=== PATIENT | male | born 1950 | race Caucasian/White ===

== ENCOUNTER 2016-06-04 09:45 | Outpatient (CLI) | payer MEDICARE, OTHER ==
[2016-06-04] MEDS ORDERED: BARIUM SULFATE 135 ML BOTTLE PO ONE (10:13)
[2016-06-04] MEDS ORDERED: BARIUM SULFATE 355 ML BOTTLE PO ONE (11:00)
[2016-06-04] MEDS ORDERED: BARIUM SULFATE 355 ML BOTTLE PO SCH (11:00)
== END 2016-06-04 09:46 | disposition home or self-care (01) ==
DX: K44.9 Diaphragmatic hernia without obstruction or gangrene (principal); K21.9 Gastro-esophageal reflux disease without esophagitis; K22.8 Other specified diseases of esophagus
CPT/HCPCS: 74220; A9270

== ENCOUNTER 2016-11-14 13:53 | Outpatient (CLI) | payer MEDICARE, OTHER ==
--- NOTE | 2016-11-15 13:07 | Ultrasound Report ---
BILATERAL LOWER EXTREMITY VENOUS DUPLEX: 11/14/2016 CLINICAL INDICATION: Bilateral edema. TECHNIQUE: Real-time sonographic vascular imaging was performed by the measurement and verification engineer through the lower extremities utilizing both color flow and Doppler spectral analysis. Multiple international sales representative static i mages were saved for review. FINDINGS: A bilateral lower extremity venous sonogram is performed revealing the common femoral, supe rficial femoral, profunda femoris, and popliteal veins to be adequately visualized without intralumin al defects. There is normal venous compression, augmentation, phasicity, and spontaneity of venous fl ow. In the calf, the visualized more cephalad portions of posterior tibial and peroneal veins are amarilys ssly compressible, without filling defects. IMPRESSION: NO EVIDENCE OF DEEP VENOUS THROMBOSIS. JOB #: [id number] EXT JOB #:[id number]
== END 2016-11-14 13:54 | disposition home or self-care (01) ==
LOC: DI 13:53
PROVIDERS: ATTEND Internal Medicine
DX: R60.0 Localized edema (principal)
CPT/HCPCS: 93306; 93970

== ENCOUNTER 2017-02-14 11:27 | Outpatient (CLI) | payer MEDICARE, OTHER ==
--- NOTE | 2017-02-14 14:13 | XRAY Report ---
THREE-VIEW LEFT KNEE: 02/14/2017 CLINICAL INDICATION: Pain, restricted range of motion. FINDINGS: AP, lateral, sunrise views of the left knee demonstrate moderate osteoarthritis. A small effusion is present. There is no evidence of fracture or dislocation. IMPRESSION: MODERATE OSTEOARTHRITIS, WITH A SMALL JOINT EFFUSION. JOB #: [id number] EXT JOB #:[id number]
== END 2017-02-14 11:28 | disposition home or self-care (01) ==
LOC: DI.N 11:27
PROVIDERS: ATTEND Internal Medicine
DX: M17.12 Unilateral primary osteoarthritis, left knee (principal); M25.462 Effusion, left knee

== ENCOUNTER 2017-08-05 13:04 | Outpatient (CLI) | payer MEDICARE, OTHER ==
--- NOTE | 2017-08-05 14:31 | XRAY Report ---
THREE VIEW RIGHT KNEE: 08/05/2017 CLINICAL INDICATION: Persistent pain. FINDINGS: AP, lateral, sunrise views of the right knee demonstrate severe right knee osteoarthritis, with complete collapse of the medial femorotibial joint space. There is no evidence of acute fracture or dislocation. No effusion is present. IMPRESSION: SEVERE RIGHT KNEE OSTEOARTHRITIS. TD: 08/05/2017 14:29
== END 2017-08-05 13:05 | disposition home or self-care (01) ==
LOC: DI 13:04
PROVIDERS: ATTEND Internal Medicine
DX: M17.11 Unilateral primary osteoarthritis, right knee (principal)

== ENCOUNTER 2018-12-25 16:40 | Outpatient (CLI) | payer MEDICARE, OTHER ==
--- NOTE | 2018-12-29 07:21 | Ultrasound Report ---
Reason: BLE EDEMA Procedure Date: 12/25/2018 Accession Number: [id number] / [id number] Procedure: US - Duplex Ext Veins Bilateral CPT Code: FULL RESULT: EXAM: BILATERAL LOWER EXTREMITY VENOUS ULTRASOUND EXAM DATE: 12/25/2018 05:17 PM CLINICAL HISTORY: Bilateral lower extremity edema. COMPARISON: DUPLEX EXT VEINS BILATERAL 11/14/2016 2:30 PM. TECHNIQUE: Real-time sonographic vascular imaging was performed by the welding systems and equipment repairer through the lower extremities utilizing both color-flow and Doppler spectral analysis. Multiple signs sales representative static images were saved for review. FINDINGS: Right: Common Femoral Vein (CFV): Normal. CFV-GSV Junction: Normal. Profunda Femoral Vein (PFV): Normal. Femoral Vein (FV) Prox: Normal. Femoral Vein (FV) Mid: Normal. Femoral Vein (FV) Dist: Normal. Popliteal Vein: Normal. Posterior Tibial Veins: Normal. Peroneal Veins: Normal. Left: Common Femoral Vein (CFV): Normal. CFV-GSV Junction: Normal. Profunda Femoral Vein (PFV): Normal. Femoral Vein (FV) Prox: Normal. Femoral Vein (FV) Mid: Normal. Femoral Vein (FV) Dist: Normal. Popliteal Vein: Normal. Posterior Tibial Veins: Normal. Peroneal Veins: Normal. Other: Right knee suprapatellar joint fluid, measured at 0.5 x 1.6 x 4.1 cm. IMPRESSION: No evidence for deep venous thrombosis bilaterally. Right knee suprapatellar joint fluid collection. RADIA
== END 2018-12-25 16:41 | disposition home or self-care (01) ==
LOC: DI 16:40
PROVIDERS: ATTEND Physician Assistant
DX: R60.0 Localized edema (principal); C7A.8 Other malignant neuroendocrine tumors; M25.461 Effusion, right knee
CPT/HCPCS: 93970

== ENCOUNTER 2019-10-24 20:08 | Outpatient (CLI) | payer MEDICARE, OTHER | END 2019-10-24 20:09 | disposition critical access hospital (66) | LOC: EMS 20:08 | PROVIDERS: ATTEND Surgery | DX: R41.82 Altered mental status, unspecified (principal) | CPT/HCPCS: A0425; A0429 ==

== ENCOUNTER 2019-10-24 20:26 | Emergency (ER) | payer MEDICARE, OTHER ==
[2019-10-24] MEDS ORDERED: levETIRAcetam INJ 1,000 MG in SODIUM CHLORIDE 0.9% 100ML 100 ML IV STA (20:30)
[2019-10-24] MEDS ORDERED: LORazepam 2 MG/ML VIAL IVP STA (20:30)
--- NOTE | 2019-10-24 20:37 | ED Physician Documentation ---
History of Present Illness - Stated complaint Stated Complaint: AMS - History obtained from History obtained from: Family, EMS - History of Present Illness Timing: Today Pain level max: 0 Pain level now: 0 - Additonal information Additional information: 69-year-old male is status post brain surgery at the [facility] for reported brain tumor. The surgery was 2 days ago on the . He was discharged today, on the car ride home he became increasingly somnolent and unresponsive. By the time that the arrived home with him in the car, he was completely unresponsive with a gaze deviation to the right and his head turned to the right. None on on was called. They brought the patient here. He continues to have a rightward gaze and nonverbal. Review of Systems Unable to obtain: Unresponsive PD PAST MEDICAL HISTORY - Past Medical History Past Medical History: Yes Cardiovascular: Hypertension Endocrine/Autoimmune: Type 2 diabetes - Past Surgical History Past Surgical History: Yes Neuro: Craniotomy - Present Medications Home Medications: Ambulatory Orders Medication Instructions Recorded Confirmed Aspirin Chewable [St Nael 81 mg PO ONCE 03/31/13 10/24/19 Aspirin] Flaxseed Oil 1,400 mg PO BID 03/31/13 10/24/19 Glucosamine Sulfate Dipot Chlr 1,500 mg PO DAILY 03/31/13 10/24/19 [Glucosamine] metFORMIN [Glucophage] 1,000 mg PO BID 09/28/14 10/24/19 Cetirizine [ZyrTEC] 10 mg PO ONCE PRN 10/02/16 10/24/19 Simvastatin 40 mg PO DAILY 10/02/16 10/24/19 Tamsulosin [Flomax] 0.4 mg PO ONCE 04/14/18 10/24/19 Lanreotide Acetate [Somatuline 120 mg SQ ONCE 05/13/18 10/24/19 Depot] Insulin Glargine [Lantus Solostar] 28 unit DAILY 07/24/18 10/24/19 raNITIdine [Zantac] 150 mg PO DAILY PRN 06/04/19 10/24/19 Capecitabine 500 mg ORAL BID 06/30/19 06/30/19 Famotidine [Pepcid] 20 mg PO ONCE 06/30/19 10/24/19 carvediloL [Carvedilol] 3.125 mg PO DAILY 06/30/19 10/24/19 dexAMETHasone [Dexamethasone] 4 tab PO TID 10/24/19 10/24/19 - Allergies Allergies/Adverse Reactions: Allergies Allergy/AdvReac Type Severity Reaction Status Date / Time No Known Drug Allergies Allergy Verified 10/24/19 20:32 - Living Situation Living Situation: reports: With family Living Arrangement: reports: At home - Social History Does the pt have substance abuse?: No - Family History Family history: reports: Non contributory PD ED PE NORMAL - Vitals Vital signs reviewed: Yes - General General: Other (Head deviated to the right, right side gaze ) - HEENT HEENT: Other (Surgical incision to the occiput. No signs of infection. Gaze deviation to the right. Pupils are pinpoint bilaterally) - Neck Neck: Supple, no meningeal sign - Cardiac Cardiac: RRR - Respiratory Respiratory: No respiratory distress, Clear bilaterally - Abdomen Abdomen: Soft, Non tender, Non distended - Derm Derm: Warm and dry - Extremities Extremities: No edema - Neuro Neuro: Other (Unresponsive) Results - Vitals Vitals: Vital Signs - 24 hr 10/24/19 10/24/19 10/24/19 20:33 20:52 21:07 Temperature 36.7 C Heart Rate 69 62 65 Respiratory 16 20 15 Rate Blood Pressure 168/99 H 154/93 H 161/90 H O2 Saturation 98 99 99 10/24/19 10/24/19 21:31 21:41 Temperature 36.3 C L Heart Rate 64 64 Respiratory 16 20 Rate Blood Pressure 161/90 H 164/95 H O2 Saturation 100 100 Oxygen O2 Source Nasal cannula Oxygen Flow Rate 6 - Labs Labs: Laboratory Tests 10/24/19 10/24/19 20:38 20:38 WBC 10.5 RBC 4.44 L Hgb 14.7 Hct 43.3 MCV 97.5 H MCH 33.1 H MCHC 33.9 RDW 14.4 Plt Count 129 L MPV 13.6 H Neut # (Auto) 8.7 H Lymph # (Auto) 0.4 L [place] # (Auto) 1.3 H Eos # (Auto) 0.0 Baso # (Auto) 0.0 Absolute Nucleated RBC 0.00 Nucleated RBC % 0.0 Sodium 137 Potassium 4.1 Chloride 98 L Carbon Dioxide 29 Anion Gap 10.0 BUN 28 H Creatinine 0.8 Estimated GFR (MDRD) 95 Glucose 189 H Calcium 8.5 Total Bilirubin 1.2 H AST 77 H ALT 29 Alkaline Phosphatase 320 H Total Protein 7.4 Albumin 3.6 Globulin 3.8 Albumin/Globulin Ratio 0.9 L Lipase 29 PD MEDICAL DECISION MAKING - ED course Complexity details: reviewed results, re-evaluated patient, considered differential, d/w patient, d/w family, d/w internal consultant ED course: Patient with what appears to be status epilepticus. He was discharged from the [facility]. Taken CT scan. [facility] contacted at [phone] for transfer. 1 g of Keppra also given. 2119, no further seizure activity. Patient with purposeful movement. Tracking with his eyes. Still nonverbal. Head CT appears to have acute hemorrhage. There is some swelling but no herniation. Recontacted the [facility]. Awaiting callback [phone] - Discussed the case with Dr. Jennings, neurosurgery on-call at the [facility] who graciously accepts in transfer. COBRA forms completed. His blood pressure has been running around 160 systolic, she would like the systolic closer to 140. We will start on nicardipine drip for this. [employer] contacted for helicopter flight. This document was made in part using voice recognition software. While efforts are made to proofread this document, sound alike and grammatical errors may occur. 1. Postoperative changes from recent left occipital lobe resection and left occipital craniotomy. There is an acute focus of parenchymal hemorrhage just deep to the dura at the site of resection measuring 1.7 x 1.3 x 1.0 cm. There is also surrounding vasogenic edema with resulting effacement of the sulci and posterior horn of the left lateral ventricle. No midline shift of structures. Basal cisterns are maintained. 2. Small amount of pneumocephalus in the anterior left frontal lobe likely from recent surgery. - Critical Care Time(min): 35 Time Includes: Direct patient care, Review records, Reassess patient, Document care, Coordinate care, Medical consult, See progress note Data interpretation: See progress note Procedures included in critical care time: See progress note Procedures excluded from critical care time: See progress note Departure - Departure Disposition: 02 Transfer Acute Care Hosp Clinical Impression: Status epilepticus, Intracranial hemorrhage Condition: Stable
[2019-10-24 20:46] LABS: BASOPHILS % (AUTO) 0.1 %; EOSINOPHILS % (AUTO) 0.1 %; HGB - HEMOGLOBIN 14.7 g/dL (14.0-18.0); LYMPHOCYTES # (AUTO) 0.4 10^3/uL (1.5-3.5); LYMPHOCYTES % (AUTO) 3.5 %; MEAN CORPUSCULAR HEMOGLOBIN 33.1 pg (27.0-31.0); MEAN CORPUSCULAR HGB CONC 33.9 g/dL (32.0-36.0); MEAN CORPUSCULAR VOLUME 97.5 fL (80.0-94.0); MEAN PLATELET VOLUME 13.6 fL (7.4-11.4); MONOCYTES # (AUTO) 1.3 10^3/uL (0.0-1.0); MONOCYTES % (AUTO) 12.5 %; NEUTROPHILS # (AUTO) 8.7 10^3/uL (1.5-6.6); NEUTROPHILS % (AUTO) 83.3 %; PLT - PLATELET COUNT 129 10^3/uL (130-450); RED BLOOD COUNT 4.44 10^6/uL (4.70-6.10); RED CELL DISTRIBUTION WIDTH 14.4 % (12.0-15.0); WHITE BLOOD COUNT 10.5 x10^3/uL (4.8-10.8)
[2019-10-24 20:57] LABS: ALBUMIN 3.6 g/dL (3.2-5.5); ALBUMIN/GLOBULIN RATIO 0.9 (1.0-2.2); BILIRUBIN,TOTAL 1.2 mg/dL (0.2-1.0); CALCIUM 8.5 mg/dL (8.5-10.3); CREATININE 0.8 mg/dL (0.6-1.2); TOTAL PROTEIN 7.4 g/dL (6.7-8.2)
[2019-10-24] MEDS ORDERED: SODIUM CHLORIDE 0.9% 1,000 ML IV STA (20:57)
--- NOTE | 2019-10-24 21:11 | CT Report ---
PROCEDURE: HEAD WO INDICATIONS: ALOC, Sz, recent brain surgery TECHNIQUE: Noncontrast 4.5 mm thick angled axial sections acquired from the foramen magnum to the vertex. For r adiation dose reduction, the following was used: automated exposure control, adjustment of mA and/or kV according to patient size. COMPARISON: None. FINDINGS: Image quality: Excellent. CSF spaces: Basal cisterns are patent. No extra-axial fluid collections. There is effacement of the posterior horn of the left lateral ventricle. Remaining ventricles appear normal in size and shape. Brain: No midline shift. There are postsurgical changes involving the posterior left parietal lobe f rom reported history of recent surgical resection. There is adjacent hypoattenuation causing effaceme nt of the posterior horn left lateral ventricle. Additionally, there is an irregular focus of acute h emorrhage involving the peripheral margin of the left occipital lobe measuring approximately 1.7 cm i n AP dimension, 1.3 cm in transverse dimension, and 1.0 cm in craniocaudal dimension. This abuts the dura. There is small amount of air superficial to the dura and overlying craniotomy site. This is lik juany postsurgical. Small amount of pneumocephalus over the anterior left frontal lobe also likely post surgical. Small amount of left occipital extra-axial fluid likely from recent surgical procedure. Skull and face: Postsurgical changes from left occipital craniotomy with skin darrian and mild scalp soft tissue swelling compatible with recent surgical procedure. No organized fluid collection noted. Remainder the visualized calvarium and visualized facial bones are intact, without suspicious lesion s. Sinuses: Visualized sinuses and mastoids are clear. IMPRESSION: 1. Postoperative changes from recent left occipital lobe resection and left occipital craniotomy. The re is an acute focus of parenchymal hemorrhage just deep to the dura at the site of resection measuri ng 1.7 x 1.3 x 1.0 cm. There is also surrounding vasogenic edema with resulting effacement of the sul ci and posterior horn of the left lateral ventricle. No midline shift of structures. Basal cisterns a re maintained. 2. Small amount of pneumocephalus in the anterior left frontal lobe likely from recent surgery. Findings were discussed with Dr. Norwood at 2107 hrs. Reviewed by: Gregg Alicea MD on 10/24/2019 9:09 PM PDT Approved by: Gregg Alicea MD on 10/24/2019 9:09 PM PDT Station ID: [id number]
[2019-10-24] MEDS ORDERED: NICARDIPINE HCL 25 MG in SODIUM CHLORIDE 0.9% 240 ML IV STA (21:49)
[2019-10-24 22:10] VITALS: BP 169/94
== END 2019-10-24 22:10 | disposition short-term general hospital (02) ==
LOC: EDUNIT# → ED 20:26
DX: I62.9 Nontraumatic intracranial hemorrhage, unspecified (principal); G97.51 Postprocedural hemorrhage of a nervous system organ or structure following a nervous system procedure; Y83.8 Other surgical procedures as the cause of abnormal reaction of the patient, or of later complication, without mention of misadventure at the time of the procedure; G40.901 Epilepsy, unspecified, not intractable, with status epilepticus; Z98.890 Other specified postprocedural states; I10 Essential (primary) hypertension; E11.9 Type 2 diabetes mellitus without complications; Z79.4 Long term (current) use of insulin
CPT/HCPCS: 36415; 70450; 80053; 83690; 85025; 96361; 96365; 96375; 99291; J2060

== ENCOUNTER 2020-04-06 12:47 | Outpatient (CLI) | payer MEDICARE, OTHER | END 2020-04-06 12:48 | disposition critical access hospital (66) | LOC: EMS 12:47 | PROVIDERS: ATTEND Surgery | DX: R53.1 Weakness (principal) | CPT/HCPCS: A0425; A0429 ==

== ENCOUNTER 2020-04-06 13:11 | Inpatient (IN) | payer MEDICARE, OTHER ==
[2020-04-06] MEDS ORDERED: SODIUM CHLORIDE 0.9% 1,000 ML IV STA (13:29)
--- NOTE | 2020-04-06 13:34 | ED Physician Documentation ---
History of Present Illness - Stated complaint Stated Complaint: WEAKNESS - Chief complaint Chief Complaint: General - History obtained from History obtained from: Patient, Family, EMS - Additonal information Additional information: 69-year-old male was brought into the emergency department for evaluation of generalized weakness. This gentleman unfortunately does have a history of hepatocellular carcinoma. He underwent a liver embolization at 3 days ago and was dc home 04/04/20. EMS reports that since then he has had some generalized weakness and is now unable to ambulate. He was also started on oxycodone for analgesia and since then has been having slurred speech. He does not have any facial droop or arm or leg weakness. he has no cough,no fevers. dysuria. reports that he has hematuria this am, no hx of similar. no dysuria. he did recently begin taking oxycodone rx by his interventional oncologist for abdominal pain Review of Systems Constitutional: reports: Reviewed and negative Nose: reports: Reviewed and negative Cardiac: reports: Reviewed and negative Respiratory: reports: Reviewed and negative Musculoskeletal: reports: Reviewed and negative Neurologic: reports: Generalized weakness, Difficulty speaking. denies: Syncope, Seizure, Confused PD PAST MEDICAL HISTORY - Past Medical History Cardiovascular: Hypertension Endocrine/Autoimmune: Type 2 diabetes - Past Surgical History Past Surgical History: Yes Neuro: Craniotomy - Present Medications Home Medications: Ambulatory Orders Medication Instructions Recorded Confirmed Aspirin Chewable [St Nael 81 mg PO ONCE 03/31/13 10/24/19 Aspirin] metFORMIN [Glucophage] 1,000 mg PO BID 09/28/14 03/29/20 Tamsulosin [Flomax] 0.4 mg PO ONCE 04/14/18 03/29/20 Lanreotide Acetate [Somatuline 120 mg SQ ONCE 05/13/18 03/29/20 Depot] Insulin Glargine [Lantus Solostar] 28 unit DAILY 07/24/18 03/29/20 carvediloL [Carvedilol] 3.125 mg PO DAILY 06/30/19 03/29/20 Lacosamide [Vimpat] 200 mg PO BID 03/29/20 03/29/20 Levetiracetam [Keppra] 1,500 mg PO BID 03/29/20 03/29/20 Omeprazole Magnesium 20 mg PO DAILY 03/29/20 03/29/20 Simvastatin [Zocor] 20 mg PO DAILY 03/29/20 03/29/20 Torsemide 20 mg PO DAILY 03/29/20 03/29/20 - Allergies Allergies/Adverse Reactions: Allergies Allergy/AdvReac Type Severity Reaction Status Date / Time phenytoin Allergy Unknown Verified 04/06/20 13:19 - Social History Does the pt smoke?: No Smoking Status: Never smoker Does the pt drink ETOH?: No Does the pt have substance abuse?: No - Immunizations Immunizations are current?: No Results - Vitals Vitals: Vital Signs - 24 hr 04/06/20 04/06/20 04/06/20 13:19 13:56 14:00 Temperature 36.6 C Heart Rate 85 84 84 Respiratory 16 17 20 Rate Blood Pressure 99/67 92/68 88/58 L O2 Saturation 90 L 90 L 91 L 04/06/20 04/06/20 04/06/20 14:45 14:49 15:00 Temperature Heart Rate 83 82 80 Respiratory 13 12 Rate Blood Pressure 95/67 96/66 O2 Saturation 90 L 91 L Oxygen O2 Source Room air - EKG (time done) 1336 Rate: Rate (enter#) (85) Rhythm: NSR [place]: Normal Intervals: Normal ME QRS: Normal Ischemia: Non specific changes Compare to prior EKG: Old EKG unavailable Computer interpretation: Agree with computer - Labs Labs: Laboratory Tests 04/06/20 04/06/20 04/06/20 13:33 13:33 13:33 WBC 10.6 RBC 5.15 Hgb 15.9 Hct 47.1 MCV 91.5 MCH 30.9 MCHC 33.8 RDW 16.6 H Plt Count 146 MPV 12.3 H Neut # (Auto) 8.4 H Lymph # (Auto) 0.5 L [place] # (Auto) 1.7 H Eos # (Auto) 0.0 Baso # (Auto) 0.0 Absolute Nucleated RBC 0.00 Band Neuts % (Manual) Not Reportable Abnorm Lymph % (Manual) Not Reportable Nucleated RBC % 0.0 Neutrophils # (Manual) Not Reportable Lymphocytes # (Manual) Not Reportable Monocytes # (Manual) Not Reportable Eosinophils # (Manual) Not Reportable Basophils # (Manual) Not Reportable Differential Comment MANUAL=AUTO DIFF Manual Slide Review Indicated WBC Morphology NORMAL APPEARANCE Platelet Estimate NORMAL (130-450,000) Platelet Morphology NORMAL APPEARANCE RBC Morph Micro Appear 1+ [place] Sodium 134 L Potassium 4.6 Chloride 95 L Carbon Dioxide 26 Anion Gap 13.0 BUN 32 H Creatinine 1.0 Estimated GFR (MDRD) 74 L Glucose 144 H Lactic Acid 3.5 H* Calcium 8.7 Total Bilirubin 3.5 H AST 483 H ALT 168 H Alkaline Phosphatase 569 H Troponin I High Sens Total Protein 5.7 L Albumin 2.7 L Globulin 3.0 Albumin/Globulin Ratio 0.9 L Lipase 13 L Urine Color Urine Clarity Urine pH Ur Specific [place] Urine Protein Urine Glucose (UA) Urine Ketones Urine Occult Blood Urine Nitrite Urine Bilirubin Urine Urobilinogen Ur Leukocyte Esterase Urine RBC Urine WBC Ur Squamous Epith Cells Urine Bacteria Urine Casts Ur Microscopic Review Urine Culture Comments 04/06/20 04/06/20 04/06/20 13:33 14:45 15:00 WBC RBC Hgb Hct MCV MCH MCHC RDW Plt Count MPV Neut # (Auto) Lymph # (Auto) [place] # (Auto) Eos # (Auto) Baso # (Auto) Absolute Nucleated RBC Band Neuts % (Manual) Abnorm Lymph % (Manual) Nucleated RBC % Neutrophils # (Manual) Lymphocytes # (Manual) Monocytes # (Manual) Eosinophils # (Manual) Basophils # (Manual) Differential Comment Manual Slide Review WBC Morphology Platelet Estimate Platelet Morphology RBC Morph Micro Appear Sodium Potassium Chloride Carbon Dioxide Anion Gap BUN Creatinine Estimated GFR (MDRD) Glucose Lactic Acid 3.4 H* Calcium Total Bilirubin AST ALT Alkaline Phosphatase Troponin I High Sens 9.9 Total Protein Albumin Globulin Albumin/Globulin Ratio Lipase Urine Color DARK YELLOW Urine Clarity CLEAR Urine pH 5.0 Ur Specific [place] 1.020 Urine Protein TRACE Urine Glucose (UA) NEGATIVE Urine Ketones TRACE Urine Occult Blood NEGATIVE Urine Nitrite NEGATIVE Urine Bilirubin MODERATE H Urine Urobilinogen 1 (NORMAL) Ur Leukocyte Esterase TRACE H Urine RBC None Seen Urine WBC 0-3 Ur Squamous Epith Cells NONE SEEN Urine Bacteria None Seen Urine Casts 26-50 Hyaline Casts Ur Microscopic Review INDICATED Urine Culture Comments INDICATED - Rads (name of study) CXR Radiology: Final report received (Increased interstitial prominence in bilateral lung yepez which may represent pneumonitis interstitial infiltrates. No pleural effusion or pneumothorax) CT head Radiology: Final report received (No acute intracranial finding. Postsurgical changes of left occipital craniotomy with resolution of previously seen adjacent hematoma) CT abd Radiology: Final report received (Hepatomegaly and extensive liver metastasis increased in size and number compared to previous study. Moderate to large amount of ascites fluid. No gross free air. Previously described possible mass near pancreatic tail splenic hilum is grossly unchanged in size and appearance. No bowel obstructi), See rad report PD MEDICAL DECISION MAKING - ED course Complexity details: reviewed results, re-evaluated patient, considered differential, d/w patient, d/w family, d/w workers compensation consultant (Dr. Da Silva ) ED course: 69-year-old male who has a history of liver carcinoma presents to the emergency department with 2 weeks of worsening fatigue. He did have a liver embolization completed on 04/06/20at [facility] with Dr. Da Silva [phone]. On initial presentation this gentleman is a lethargic but awake. He does have a soft blood pressure in the 90s over 60s. He is saturating 96% on room air. His initial labs reveal no leukocytosis but an initial lactate elevation of 3.5. 30 mils per kilo of IV fluid crystalloid was ordered based on this. Head CT did not show any acute intracranial findings. Chest x-ray suggest bilateral lower lobe pneumonias. Patient was initiated on sepsis protocol at 1610. He was given cefepime and Levaquin for the pneumonia. CT of the abdomen does show extensive hepatobiliary carcinoma. Again he is status post embolization. Unfortunately does also show that he has bilateral pleural effusions with subcentimeter nodules seen in the right and lower lobes that are concerning for pulmonary metastasis of his disease. 1430: I have alsodiscussed this case with the interventional physician that did the procedure at [facility] 3 days ago. He does expect the transaminase elevations and would not expect any acute needs Would necessitate transfer to [facility] at this time. 1630:I have spoken to Dr. Valdivia who agrees to bring the patient into the ICU for further evaluation and treatment of his sepsis. - Sepsis Event Current Stage of Sepsis: Sepsis Possible source of Sepsis: Pulmonary Mental/Cognitive Status: Lethargic, Change from baseline Capillary refill: Less than 2 seconds Peripheral Pulse Strength: 1+ Faint Peripheral Pulse Location: Pedal Bedside ultrasound performed: No Sepsis Comment: sepsis identified at 1610 Departure - Departure Disposition: 66 [facility] DC/Xfer Clinical Impression: Bilateral pneumonia Qualifiers: Pneumonia type: due to unspecified organism Lung location: lower lobe of lung Qualified Code(s): J18.9 - Pneumonia, unspecified organism Liver cancer Qualifiers: Liver malignancy type: hepatocellular carcinoma Qualified Code(s): C22.0 - Liver cell carcinoma Sepsis Qualifiers: Sepsis type: sepsis due to unspecified organism Sepsis acute organ dysfunction status: without acute organ dysfunction Qualified Code(s): A41.9 - Sepsis, unspecified organism Discharge Date/Time: 04/06/20 17:19
[2020-04-06 13:48] LABS: BASOPHILS % (AUTO) 0.3 %; HGB - HEMOGLOBIN 15.9 g/dL (14.0-18.0); LYMPHOCYTES # (AUTO) 0.5 10^3/uL (1.5-3.5); LYMPHOCYTES % (AUTO) 4.3 %; MEAN CORPUSCULAR HEMOGLOBIN 30.9 pg (27.0-31.0); MEAN CORPUSCULAR HGB CONC 33.8 g/dL (32.0-36.0); MEAN CORPUSCULAR VOLUME 91.5 fL (80.0-94.0); MEAN PLATELET VOLUME 12.3 fL (7.4-11.4); MONOCYTES # (AUTO) 1.7 10^3/uL (0.0-1.0); MONOCYTES % (AUTO) 16.3 %; NEUTROPHILS # (AUTO) 8.4 10^3/uL (1.5-6.6); NEUTROPHILS % (AUTO) 78.4 %; PLT - PLATELET COUNT 146 10^3/uL (130-450); RED BLOOD COUNT 5.15 10^6/uL (4.70-6.10); RED CELL DISTRIBUTION WIDTH 16.6 % (12.0-15.0); WHITE BLOOD COUNT 10.6 x10^3/uL (4.8-10.8)
[2020-04-06 14:03] LABS: ALBUMIN 2.7 g/dL (3.2-5.5); ALBUMIN/GLOBULIN RATIO 0.9 (1.0-2.2); BILIRUBIN,TOTAL 3.5 mg/dL (0.2-1.0); CALCIUM 8.7 mg/dL (8.5-10.3); TOTAL PROTEIN 5.7 g/dL (6.7-8.2)
[2020-04-06 14:30] LABS: PLATELET ESTIMATE, MANUAL NORMAL (130-450,000) (NORMAL); PLATELET MORPHOLOGY NORMAL APPEARANCE (NORMAL); RBC MORPHOLOGY (MULTIPLE) 1+ OVALOCY (NORMAL)
[2020-04-06 14:31] LABS: DIFFERENTIAL COMMENT MANUAL=AUTO DIFF
[2020-04-06] MEDS ORDERED: SODIUM CHLORIDE 0.9% IV STA (14:40)
--- NOTE | 2020-04-06 14:49 | CT Report ---
PROCEDURE: HEAD WO INDICATIONS: Slurred speech TECHNIQUE: Noncontrast 4.5 mm thick angled axial sections acquired from the foramen magnum to the vertex. For r adiation dose reduction, the following was used: automated exposure control, adjustment of mA and/or kV according to patient size. COMPARISON: 10/24/2019 FINDINGS: Image quality: Excellent. Postoperative changes of left occipital craniotomy for left occipital resection. Mild encephalomalaci a and gliotic changes in this region are present. Previously seen intracranial hemorrhage has resolve d. There is no new or acute intracranial hemorrhage demonstrated. The velez-white matter differentiati on is maintained. IMPRESSION: No acute intracranial finding. Post surgical changes of left occipital craniotomy with resolution of previously seen adjacent hemato ma. Reviewed by: Low Cruz MD on 04/06/2020 2:47 PM PST Approved by: Low Cruz MD on 04/06/2020 2:47 PM PST Station ID: [id number]
[2020-04-06 14:59] LABS: GLUCOSE, URINE (UA) NEGATIVE (NEGATIVE); KETONES,URINE (UA) TRACE mg/dL (NEGATIVE); LEUKOCYTE ESTERASE, URINE TRACE (NEGATIVE); NITRITE,URINE NEGATIVE (NEGATIVE); OCCULT BLOOD,URINE NEGATIVE (NEGATIVE); PROTEIN,URINE TRACE mg/dL (NEGATIVE); UROBILINOGEN,URINE 1 (NORMAL) E.U./dL (NORMAL)
[2020-04-06 15:01] LABS: BILIRUBIN,URINE MODERATE (NEGATIVE); CLARITY,URINE CLEAR (CLEAR); ICTOTEST,URINE POSITIVE
[2020-04-06 15:09] LABS: BACTERIA,URINE None Seen /HPF (None Seen); CASTS, URINE 26-50 Hyaline Casts /LPF; RBC,URINE None Seen /HPF (0-5); SQUAMOUS EPITHELIAL CELL,UR NONE SEEN (<= Few)
[2020-04-06] MEDS ORDERED: IOVERSOL 320 100 ML VIAL IVP ONE ×2 (15:21→15:41)
--- NOTE | 2020-04-06 15:58 | XRAY Report ---
PROCEDURE: Chest 1 View X-Ray INDICATIONS: chest pain TECHNIQUE: One view of the chest was acquired. COMPARISON: CT of chest dated 03/28/2018 FINDINGS: Surgical changes and devices: Right chest wall Port-A-Cath tip is in SVC. Lungs and pleura: No pleural effusions or pneumothorax. Increased interstitial lung markings in bila teral lung yepez are seen. Mediastinum: Mediastinal contours appear normal. Heart size is normal. Bones and chest wall: No suspicious bony lesions. Overlying soft tissues appear unremarkable. IMPRESSION: Increased interstitial prominence in bilateral lung yepez which may represent pneumonitis/interstiti al infiltrates. No pleural effusion or pneumothorax. Reviewed by: Cristi Corbin MD on 04/06/2020 2:57 PM [place] Approved by: Cristi Corbin MD on 04/06/2020 2:57 PM [facility] Station ID: [id number]
[2020-04-06] MEDS ORDERED: levoFLOXacin 750 MG/150 ML 750 MG/150 ML BAG IV STA (16:11)
[2020-04-06] MEDS ORDERED: CEFEPIME 2 GM in SODIUM CHLORIDE 0.9% MINIBAG 100 ML IV STA (16:11)
[2020-04-06] MEDS ORDERED: oxyCODONE 5 MG TABLET PO PRN (16:29)
[2020-04-06] MEDS ORDERED: SODIUM CHLORIDE FLUSH 0.9% 10 ML SYRINGE IVP PRN ×2 (16:29→17:46)
[2020-04-06] MEDS ORDERED: ONDANSETRON ODT 4 MG TABLET TL PRN (16:29)
[2020-04-06] MEDS ORDERED: ONDANSETRON 4 MG/2 ML VIAL IVP PRN (16:29)
--- NOTE | 2020-04-06 16:43 | CT Report ---
PROCEDURE: Abdomen/Pelvis W INDICATIONS: recent liver ambolization; elevated lactate CONTRAST: IV CONTRAST: Optiray 320 ml: 100 PO CONTRAST: *NO PO CONTRAST TECHNIQUE: After the administration of IV contrast, 5 mm thick sections acquired from the diaphragms to the symp hysis. 5 mm thick coronal and sagittal reformats were acquired. For radiation dose reduction, the f ollowing was used: automated exposure control, adjustment of mA and/or kV according to patient size. COMPARISON: 03/28/2018. FINDINGS: Image quality: Excellent. ABDOMEN: Lung bases: There is small to moderate left pleural effusion and small right pleural effusion with se gmental atelectasis of adjacent bilateral lower lobes. 4 mm nodule is seen in posterior medial aspect of right lower lobe series 4 image 14. 9 x 7 mm oval nodule is also seen in right middle lobe medial right lung base series 4 image 41. Heart size is normal. Solid organs: Liver is enlarged. Moderate to large amount of ascites fluid is seen in abdomen and pel vis. There are extensive hypodensity throughout right hepatic lobe with additional oval hypodensities scattered in right and left hepatic lobes significantly increased in size and numbers compared to 20 18 study and is consistent with extensive liver metastasis. There is a peripherally enhancing area of hypodensity in posterior segment of right hepatic lobe and measures in aggregate 14.7 x 11.8 x 11.3 cm in size. Given patient's history of recent embolization, tumor necrosis in right hepatic lobe is l ikely present. Gallbladder shows no gross abnormality. Biliary system is non dilated. Spleen is enl arged and shows heterogeneous contrast enhancement. Pancreas is suboptimally seen. Previously describ ed possible infiltrative mass involving pancreatic tail/splenic hilum is grossly unchanged in size an d appearance. Previously noted soft tissue mass in the lesser sac abutting greater curvature of stoma ch is less well-defined on the current study and best seen on series 3 image 29 and series 6 image 22 , currently measures 2.9 x 2.5 x 3.3 cm in size compared to 2.5 x 3.3 x 3.4 cm on previous study. No adrenal nodules. Kidneys demonstrate normal size and enhancement, without hydronephrosis. Nonobstru cting right renal calculi are again seen, unchanged from prior study. Peritoneum and bowel: Bowel loops demonstrate normal wall thickness and caliber. Fecal stasis throug hout the colon is seen. No gross free air. Nodes and vessels: No retroperitoneal or mesenteric adenopathy by size criteria. Aorta and inferior vena cava are normal in size. Miscellaneous: No ventral hernias. PELVIS: Genitourinary: Bladder wall thickness is normal. Miscellaneous: No inguinal hernias or adenopathy. Bones: No suspicious bony lesions. No vertebral body compression fractures. IMPRESSION: 1. Hepatomegaly and extensive liver metastases, increased in size and number compared to previous ava dy. Heterogeneously hypodense and peripherally enhancing area involving posterior segment of right he patic lobe as described above, and may represent tumor necrosis given patient's history of recent emb olization. 2. Moderate to large amount of ascites fluid. No gross free air. 3. Previously described possible mass near pancreatic tail/splenic hilum is grossly unchanged in size and appearance. Previously described soft tissue mass in lesser sac is not significantly changed. Cu rrent evaluation is slightly limited due to lack of oral contrast. 4. No bowel obstruction. No definite abnormal bowel wall thickening. 5. Left greater than right bilateral pleural effusions with bibasilar atelectasis. Subcentimeter nodu les seen in right middle and lower lobes as above, concerning for pulmonary metastases. Reviewed by: Cristi Corbin MD on 04/06/2020 3:41 PM AKST Approved by: Cristi Corbin MD on 04/06/2020 3:41 PM AKST Station ID: [id number]
[2020-04-06] MEDS ORDERED: SODIUM CHLORIDE FLUSH 0.9% 10 ML SYRINGE IVP SCH (17:00)
[2020-04-06] MEDS ORDERED: LACTATED RINGERS 1,000 ML IV SCH (17:00)
--- NOTE | 2020-04-06 18:02 | HISTORY & PHYSICAL EXAMINATION ---
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 Patient was discharged from the [facility] on 04/04/20 post-embolization. He reports feeling weak and unwell since his discharge. He was able to walk around his home with his cane yesterday, however, he became progressively weak today and was unable to walk. Patient also reports not having an appetite after his embolization. His became concern that he is not feeling well and called EMS to take him to the hospital. He denies fever, chills, weight changes, but reports fatigue for the past two weeks. No headache, dyspnea, cough, or chest pain. He has chronic bilateral pedal edema and ascites. He endorses mild abdominal pain that is improving, no nausea/vomiting, melena or hematochezia. He admits to having constipation since his embolization. No dysuria, urgency or frequency. Generalized weakness that has worsened since he was discharged from the hospital. No neuro deficits. The patient is afebrile, normal sinus rhythm with soft blood pressure 90s/60s. His oxygen saturations were initially in the 90s on room air but is now 94-95%. His lab is notable for an elevated lactate of 3.5 and LFTs. No leukocytosis. Blood cultures are sent and is pending. Chest x-ray shows possible interstitial infiltrates, thus, he was started on IV levofloxacin and cefepime per sepsis protocol and was also given a liter of LR. Patient is being admitted to the ICU for hypotension, lactic acidosis, and possible pneumonia. (Martha Soler) History - Past Medical History Cardiovascular: reports: Hypertension Respiratory: reports: None Neuro: reports: Other (status epilepticus noted in 09/2019 secondary to intracranial bleed post craniotomy.) Endocrine/Autoimmune: reports: Type 2 diabetes GI: reports: Other (occasional constipation) : reports: Benign prostate hypertrophy HEENT: reports: None Musculoskeletal: reports: None Derm: reports: None MRSA Hx?: No - Past Surgical History General: reports: Liver surgery (liver embolization ) Neuro: reports: Craniotomy - Family & Social History Family History: Mother: , Father: Living arrangement: At home Living Situation: With spouse/s.o. Social History Notes: Patient lives with in [place]. He is a retired and was in the [employer]. Patient and his has one daughter that lives in [place]. Patient was a former smoker who quit over 30 years ago and denies drinking or other drug use. - Substance History Use: Uses substance without health or social issues: NONE - POLST Patient has POLST: No POLST Status: Full Code <Martha Soler - Last Filed: 04/07/20 07:13> Meds/Allgy <Nidia Valdivia - Last Filed: 04/06/20 20:11> <Martha Soler - Last Filed: 04/07/20 07:13> - Home Medications Home Medications: Ambulatory Orders Medication Instructions Recorded Confirmed Aspirin Chewable [St Nael 81 mg PO ONCE 03/31/13 10/24/19 Aspirin] metFORMIN [Glucophage] 1,000 mg PO BID 09/28/14 03/29/20 Tamsulosin [Flomax] 0.4 mg PO ONCE 04/14/18 03/29/20 Lanreotide Acetate [Somatuline 120 mg SQ ONCE 05/13/18 03/29/20 Depot] Insulin Glargine [Lantus Solostar] 28 unit DAILY 07/24/18 03/29/20 carvediloL [Carvedilol] 3.125 mg PO DAILY 06/30/19 03/29/20 Lacosamide [Vimpat] 200 mg PO BID 03/29/20 03/29/20 Levetiracetam [Keppra] 1,500 mg PO BID 03/29/20 03/29/20 Omeprazole Magnesium 20 mg PO DAILY 03/29/20 03/29/20 Simvastatin [Zocor] 20 mg PO DAILY 03/29/20 03/29/20 Torsemide 20 mg PO DAILY 03/29/20 03/29/20 - Allergies Allergies/Adverse Reactions: Allergies Allergy/AdvReac Type Severity Reaction Status Date / Time phenytoin Allergy Unknown Verified 04/06/20 13:19 Review of Systems - Constitutional Constitutional: reports: Fatigue, Malaise, Weakness, Poor appetite. denies: Fever, Chills, Diaphoresis, Night sweats, Weight gain, Weight loss - Eyes Eyes: denies: Pain, Irritation, Amaurosis, Blurred vision, Vision loss - Ears, Nose & Throat Ears, Nose & Throat: denies: Ear pain, Hearing loss, Hearing aids, Vertigo, Nasal discharge, Sore throat - Cardiovascular Cariovascular: reports: Edema (chronic bilateral lower extremity edema). denie s: Palpitations, Chest pain, Lightheadedness, Syncope, Exertional dyspnea, Decr. exercise tolerance, Orthopnea - Respiratory Respiratory: denies: Cough, Wheezing, Orthopnea, SOB at rest - Gastrointestinal Gastrointestinal: reports: Abdominal pain (mild abdominal pain from liver embolization), Abdominal distention (ascites noted), Constipation, Poor appetite. denies: Diarrhea, Black stools, Bloody stools, Nausea, Vomiting, Reflux/heartburn, Bloating - Genitourinary Genitourinary: denies: Dysuria, Frequency, Urgency, Hematuria, Incontinence - Musculoskeletal Musculoskeletal: reports: Muscle weakness. denies: Muscle pain, Back pain - Integumentary Integumentary: denies: Rash, Pruritis, Lesions, Dryness - Neurological Neurological: reports: General weakness. denies: Focal weakness, Headache, Dizziness, Numbness, Seizures, Slurred speech - Psychiatric Psychiatric: denies: Depression, Anxiety - Endocrine Endocrine: denies: Polyuria, Polydypsia, Polyphagia - Hematologic/Lymphatic Hematologic/Lymphatic: denies: Bruising, Petechiae, Blood clots <Martha Soler - Last Filed: 04/07/20 07:13> <Martha Soler - Last Filed: 04/07/20 07:13> Prior Level of Functionality: Prior to his admission patient can perform ADLs independently. He ambulates with a cane around his house without any assistance. (Martha Soler) Exam - Vital Signs Reviewed Vital Signs: Yes - Physical Exam General Appearance: positive: No acute distress, Alert, Lethargic, Other (Patient is a thin, pale male who looks malnourished and ill.) Eyes Bilateral: positive: Normal inspection, PERRL, EOMI, No lid inflammation, Conjunctivae nml, No scleral icterus ENT: positive: ENT inspection nml, Pharynx nml Neck: positive: Nml inspection, Thyroid nml, Trachea midline. negative: No JVD, Thyromegaly, Lymphadenopathy (R), Lymphadenopathy (L), Stiff neck, Carotid bruit, Swelling/bruising, Tracheal deviation Respiratory: positive: Chest non-tender, No respiratory distress, Other (slightly diminished bilateral lung sounds in the lower lobes). negative: Wheezes, Rales, Rhonchi Cardiovascular: positive: Regular rate & rhythm, No murmur, No gallop. negative: Irregularly irregular, Extrasystoles, Tachycardia, JVD present, Systolic murmur, Diastolic murmur, Gallop/S3, Gallop/S4, Friction rub Peripheral Pulses: positive: 2+ Abdomen: positive: Non-tender, Nml bowel sounds, Other (Unable to assess for organomegaly due to acsites). negative: Guarding, Rebound, Abnml bowel sounds, Bruit Skin: positive: No rash, Dry, Other (Skin is cool in the hands and pale.). negative: Diaphoresis, Skin rash Extremities: positive: Non-tender, Full ROM, Pedal edema. negative: Calf tenderness Neurologic/Psychiatric: positive: Oriented x3, Sensation nml, Mood/affect nml, Weakness. negative: Facial droop, Slurred/abnml speech, Depressed mood/affect <Martha Soler - Last Filed: 04/07/20 07:13> - Vital Signs Vital Signs: Vital Signs x48h Temp Pulse Pulse Resp BP BP Pulse Ox 04/06/20 19:30 36.6 C 89 17 92 04/06/20 19:00 86 23 103/72 94 04/06/20 18:30 86 15 111/75 04/06/20 18:18 82 25 H 112/71 95 04/06/20 17:46 36.6 C 82 12 122/77 92 04/06/20 17:18 82 18 115/81 H 04/06/20 15:00 80 12 96/66 91 L 04/06/20 14:49 82 04/06/20 14:45 83 13 95/67 90 L 04/06/20 14:00 84 20 88/58 L 91 L 04/06/20 13:56 84 17 92/68 90 L 04/06/20 13:19 36.6 C 85 16 99/67 90 L Sepsis Event Note (H) - Evaluation Possible source of Sepsis: positive: Pulmonary <Martha Soler - Last Filed: 04/07/20 07:13> Conclusion/Plan - Problem List (1) 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 He is a mejia gentleman has been through a lot. Documentation by DNP student Martha Soler is appropriate and correct. We have discussed the diagnosis and treatment. I have also discussed it with the patient. 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 His symptoms and diagnostics correlates with post-embolization syndrome. Plan: Patient was initially thought to be septic. However, after a thorough evaluation of the patient, it is determined that his symptoms and presentation does not match that of sepsis or pneumonia. His presentation is more likely due to post liver embolization. He will be closely monitored until his lactate comes down and blood pressure is back to baseline. Will continue to give maintenance IV fluid and trend CBC, BMP, and lactate. Qualifiers: Encounter type: initial encounter Qualified Code(s): T81.718A - Complication of other artery following a procedure, not elsewhere classified, initial encounter (2) Hypotension Conclusion/Plan: His initial blood pressure in the emergency room was 80s/50s and was given a liter of LR, which he responded nicely to with blood pressure now 115/70s. His hypotension is likely due post-embolization syndrome and dehydration secondary to decreased PO fluid intake. Plan: Continue IV maintenance fluid and encourage PO intake. Will monitor vitals closely. Qualifiers: Hypotension type: unspecified hypotension type Qualified Code(s): I95.9 - Hypotension, unspecified (3) Lactic acidosis Conclusion/Plan: Lactate was 3.5 in the emergency room. Recheck lactate is now 2.7 after a liter of LR. His lactic acidosis is likely due to a combination of dehydration, post- embolization syndrome, and metformin. Plan: Will continue IVF and hold metformin. Will start him on a sliding scale insulin protocol for his type 2 diabetes. Recheck lactate in the morning. (4) Abnormal abdominal CT scan Conclusion/Plan: abdominal/pelvis CT from today showed hepatomegaly and extensive metastases compared to previous study. There is also a large amount of ascites fluid seen along with possible necrotic tissue from recent embolization. Bilateral pleural effusions with bibasilar ateletasis and subcentimeter nodules seen in the right middle and lower lobes, which is concerning for pulmonary metastases per radiology. Plan: Will get medical record from [facility] for more imagining and information, then determine if a chest CT is needed. - Lab Results Lab results reviewed: Yes Fish Bones: 04/07/20 04:30 04/07/20 04:30 - Diagnostic Imaging Results Diagnostic Imaging Results: positive: Final report reviewed - EKG Results EKG Interpreted Independently: Yes EKG Comparison: Old EKG unavailable <Martha Soler - Last Filed: 04/07/20 07:13> Core Measures - Anticipated LOS I expect patient to be DC'd or transferred within 96 hours.: No - DVT/VTE - Prophylaxis VTE/DVT Device ordered at admit?: Yes VTE/DVT Prophylaxis med ordered at admit?: Yes - Stroke - Rehab Assessment Rehab services assessment to be ordered?: No Not Ordered - Medical Reason: Not indicated - AMI - Statin at Admit Aspirin Prescribed on Admit: No Not Ordered - Medical Reason: Not indicated <Martha Soler - Last Filed: 04/07/20 07:13>
[2020-04-06] MEDS: SODIUM CHLORIDE FLUSH 0.9% 10 ML SYRINGE IVP SCH (18:10)
[2020-04-06 18:15] LABS: C. PNEUMONIAE- RESP PCR PANEL NOT DETECTED
[2020-04-06] MEDS: LACTATED RINGERS 1,000 ML IV SCH (18:58)
[2020-04-06] MEDS ORDERED: levETIRAcetam 500 MG/5 ML UDC PO ONE (20:52)
[2020-04-06] MEDS ORDERED: levETIRAcetam 100 MG/ML 473ML BOTTLE PO SCH (21:00)
[2020-04-06] MEDS: levETIRAcetam 500 MG/5 ML UDC PO SCH (21:03)
[2020-04-07] MEDS ORDERED: LACTATED RINGERS 1,000 ML IV ONE (00:09)
[2020-04-07 04:46] LABS: BASOPHILS % (AUTO) 0.1 %; EOSINOPHILS % (AUTO) 2.4 %; HGB - HEMOGLOBIN 14.3 g/dL (14.0-18.0); LYMPHOCYTES % (AUTO) 6.4 %; MEAN CORPUSCULAR HEMOGLOBIN 31.4 pg (27.0-31.0); MEAN CORPUSCULAR VOLUME 92.1 fL (80.0-94.0); MEAN PLATELET VOLUME 12.4 fL (7.4-11.4); MONOCYTES % (AUTO) 15.8 %; NEUTROPHILS % (AUTO) 74.5 %; PLT - PLATELET COUNT 105 10^3/uL (130-450); RED BLOOD COUNT 4.56 10^6/uL (4.70-6.10); RED CELL DISTRIBUTION WIDTH 16.7 % (12.0-15.0); WHITE BLOOD COUNT 7.1 x10^3/uL (4.8-10.8)
[2020-04-07 04:55] LABS: ABNORMAL LYMPHS % (MANUAL) 0 %
[2020-04-07 05:01] LABS: ALBUMIN 2.2 g/dL (3.2-5.5); ALBUMIN/GLOBULIN RATIO 0.8 (1.0-2.2); BILIRUBIN,TOTAL 3.2 mg/dL (0.2-1.0); CALCIUM 8.1 mg/dL (8.5-10.3); CREATININE 0.8 mg/dL (0.6-1.2); TOTAL PROTEIN 4.8 g/dL (6.7-8.2)
[2020-04-07] MEDS: LACTATED RINGERS 1,000 ML IV SCH ×2 (05:12→15:14)
[2020-04-07 05:15] LABS: BAND NEUTROPHILS % (MANUAL) 2 %; LYMPHOCYTES # (MANUAL) 0.5 10^3/uL (1.5-3.5); LYMPHOCYTES % (MANUAL) 7 %; MONOCYTES # (MANUAL) 0.9 10^3/uL (0.0-1.0)
[2020-04-07 05:16] LABS: DIFFERENTIAL COMMENT MANUAL DIFFERENTIAL; PLATELET ESTIMATE, MANUAL DECREASED (<130,000) (NORMAL); PLATELET MORPHOLOGY NORMAL APPEARANCE (NORMAL); RBC MORPHOLOGY (MULTIPLE) NORMAL APPEARANCE (NORMAL)
[2020-04-07 05:31] LABS: PHOSPHORUS 2.2 mg/dL (2.5-4.6)
[2020-04-07] MEDS: ENOXAPARIN 40 MG/0.4 ML SYRINGE SUBQ SCH (08:18)
[2020-04-07] MEDS: NEUTRA-PHOS 250 MG TABLET PO SCH ×2 (08:19→10:19)
[2020-04-07] MEDS: SODIUM CHLORIDE FLUSH 0.9% 10 ML SYRINGE IVP SCH ×3 (08:19→23:38)
[2020-04-07] MEDS: levETIRAcetam 500 MG/5 ML UDC PO SCH ×2 (08:19→20:27)
[2020-04-07] MEDS ORDERED: ENOXAPARIN 40 MG/0.4 ML SYRINGE SUBQ SCH (09:00)
--- NOTE | 2020-04-07 09:34 | PROVIDER PROGRESS NOTE ---
<RyderMartha - Last Filed: 04/07/20 11:01> Subjective - Prog Note Date Prog Note Date: 04/07/20 Prog Note Time: 09:30 - Subjective Pt reports feeling: Improved Subjective: Patient reports feeling a little bit better today. He still feels weak and tired but not as much as yesterday. He denies being short of breath, cough, or chest pain. No chills or fever. He still has some abdominal cramping that is no worse that before. He is drinking and eating a little bit but his appetite has not picked up yet. Current Medications - Current Medications Current Medications: Active Medications Generic Name Dose Route Start Last Admin Trade Name Freq PRN Reason Stop Dose Admin Enoxaparin Sodium 40 mg 04/07/20 09:00 04/07/20 08:18 Enoxaparin 40 Mg/0.4 Ml Syringe SUBQ 40 mg DAILY MEENAKSHI Administration Lactated Ringer's 1,000 mls @ 100 mls/hr 04/06/20 18:00 04/07/20 05:12 Lr IV 100 mls/hr .Q10H MEENAKSHI Administration Levetiracetam 1,500 mg 04/06/20 21:00 04/07/20 08:19 Levetiracetam 500 Mg/5 Ml Udc PO 1,500 mg BID MEENAKSHI Administration Ondansetron HCl 4 mg 04/06/20 16:29 Ondansetron Odt 4 Mg Tablet TL Q6HR PRN Nausea / Vomiting Ondansetron HCl 4 mg 04/06/20 16:29 Ondansetron 4 Mg/2 Ml Vial IVP Q6HR PRN Nausea / Vomiting Oxycodone HCl 5 mg 04/06/20 16:29 Oxycodone 5 Mg Tablet PO Q4HR PRN Pain 5 to 7 Sodium Chloride 10 ml 04/06/20 17:46 Sodium Chloride Flush 0.9% 10 Ml Syringe IVP PRN PRN NEEDED PER PROVIDER ORDERS Sodium Chloride 10 ml 04/06/20 18:00 04/07/20 08:19 Sodium Chloride Flush 0.9% 10 Ml Syringe IVP 10 ml 0100,0900,1700 MEENAKSHI Administration Aspirin Chewable [[place] Aspirin] 81 mg PO ONCE 03/31/13 metFORMIN [Glucophage] 1,000 mg PO BID 09/28/14 Tamsulosin [Flomax] 0.4 mg PO ONCE 04/14/18 Lanreotide Acetate [Somatuline Depot] 120 mg SQ ONCE 05/13/18 Insulin Glargine [Lantus Solostar] 28 unit DAILY 07/24/18 carvediloL [Carvedilol] 3.125 mg PO DAILY 06/30/19 Lacosamide [Vimpat] 200 mg PO BID 03/29/20 Levetiracetam [Keppra] 1,500 mg PO BID 03/29/20 Omeprazole Magnesium 20 mg PO DAILY 03/29/20 Simvastatin [Zocor] 20 mg PO DAILY 03/29/20 Torsemide 20 mg PO DAILY 03/29/20 Objective - Vital Signs/Intake & Output Reviewed Vital Signs: Yes Vital Signs: Vital Signs x48h Temp Pulse Resp BP Pulse Ox 04/07/20 08:00 36.4 C L 82 18 112/83 H 96 04/07/20 04:00 74 13 114/77 96 Intake & Output: Intake & Output 04/04/20 04/05/20 04/06/20 04/07/20 23:59 23:59 23:59 23:59 Intake Total 2150 2740 Output Total 375 350 Balance 1775 2390 - Objective General Appearance: positive: No acute distress, Alert, Lethargic (He is a thin and pale. Appears tired and weak but alert, pleasant, and appropriate.), Other Eyes Bilateral: positive: Normal inspection, PERRL, EOMI, No lid inflammation, Conjunctivae nml ENT: positive: ENT inspection nml, Pharynx nml, No signs of dehydration Neck: positive: Nml inspection, Thyroid nml, Trachea midline. negative: No JVD, Thyromegaly, Lymphadenopathy (R), Lymphadenopathy (L), Stiff neck, Carotid bruit, Tracheal deviation Respiratory: positive: Chest non-tender, No respiratory distress, Breath sounds nml. negative: Wheezes, Rales, Rhonchi Cardiovascular: positive: Regular rate & rhythm, No murmur, No gallop, Irregularly irregular, Extrasystoles, Tachycardia, Systolic murmur (grade 1-2 murmur heard). negative: JVD present, Gallop/S3, Gallop/S4 Peripheral Pulses: 2+ Radial (R), 2+ Radial (L), 2+ Dorsalis pedis (R), 2+ Dorsalis pedis (L), 2+ Posterior tibialis (R), 2+ Posterior tibialis (L) Abdomen: positive: Non-tender, Nml bowel sounds, Other (unable to assess for organomegaly due to ascites). negative: Guarding, Rebound, Bruit Skin: positive: Color nml, No rash, Warm, Dry. negative: Cyanosis, Diaphoresis, Pallor Extremities: positive: Non-tender, Pedal edema (+3 pedal edema on bilateral lower extremities--chronic). negative: Calf tenderness - Lab Results Fish Bones: 04/07/20 04:30 04/07/20 04:30 Other Labs: Lab Results x24hrs 04/07/20 04/07/20 04/07/20 Range/Units 04:30 04:30 04:30 WBC (4.8-10.8) x10^3/uL RBC (4.70-6.10) 10^6/uL Hgb (14.0-18.0) g/dL Hct (42.0-52.0) % MCV (80.0-94.0) fL MCH (27.0-31.0) pg MCHC (32.0-36.0) g/dL RDW (12.0-15.0) % Plt Count (130-450) 10^3/uL MPV (7.4-11.4) fL Neut # (Auto) (1.5-6.6) 10^3/uL Lymph # (Auto) (1.5-3.5) 10^3/uL [place] # (Auto) (0.0-1.0) 10^3/uL Eos # (Auto) (0.0-0.7) 10^3/uL Baso # (Auto) (0.0-0.1) 10^3/uL Absolute Nucleated RBC x10^3/uL Total Counted Band Neuts % (Manual) Abnorm Lymph % (Manual) Nucleated RBC % /100WBC Neutrophils # (Manual) Lymphocytes # (Manual) Monocytes # (Manual) Eosinophils # (Manual) Basophils # (Manual) Differential Comment Manual Slide Review WBC Morphology (NORMAL) Platelet Estimate (NORMAL) Platelet Morphology (NORMAL) RBC Morph Micro Appear (NORMAL) Sodium 135 (135-145) mmol/L Potassium 3.9 (3.5-5.0) mmol/L Chloride 101 (101-111) mmol/L Carbon Dioxide 23 (21-32) mmol/L Anion Gap 11.0 (6-13) BUN 29 H (6-20) mg/dL Creatinine 0.8 (0.6-1.2) mg/dL Estimated GFR (MDRD) 95 (>89) Glucose 200 H (70-100) mg/dL Lactic Acid 3.5 H* (0.5-2.2) mmol/L Calcium 8.1 L (8.5-10.3) mg/dL Phosphorus 2.2 L (2.5-4.6) mg/dL Magnesium 2.0 (1.7-2.8) mg/dL Total Bilirubin 3.2 H (0.2-1.0) mg/dL AST 300 H (10-42) IU/L ALT 122 H (10-60) IU/L Alkaline Phosphatase 409 H (42-121) IU/L Total Creatine Kinase (22-269) IU/L Troponin I High Sens (2.3-19.7) ng/L Total Protein 4.8 L (6.7-8.2) g/dL Albumin 2.2 L (3.2-5.5) g/dL Globulin 2.7 (2.1-4.2) g/dL Albumin/Globulin Ratio 0.8 L (1.0-2.2) Lipase (22-51) U/L Urine Color Urine Clarity (CLEAR) Urine pH (5.0-7.5) PH Ur Specific [place] (1.002-1.030) Urine Protein (NEGATIVE) mg/dL Urine Glucose (UA) (NEGATIVE) mg/dL Urine Ketones (NEGATIVE) mg/dL Urine Occult Blood (NEGATIVE) Urine Nitrite (NEGATIVE) Urine Bilirubin (NEGATIVE) Urine Urobilinogen (NORMAL) E.U./dL Ur Leukocyte Esterase (NEGATIVE) Urine RBC (0-5) /HPF Urine WBC (0-3) /HPF Ur Squamous Epith Cells (<= Few) Urine Bacteria (None Seen) /HPF Urine Casts /LPF Ur Microscopic Review Urine Culture Comments Nasal Adenovirus (PCR) Nasal B. parapertussis DNA (PCR) Nasal Coronavir 229E PCR Nasal Coronavir HKU1 PCR Nasal Coronavir NL63 PCR Nasal Coronavir OC43 PCR Nasal Enterovir/Rhinovir PCR Nasal Influenza B PCR Nasal Influenza A PCR Nasal Parainfluen 1 PCR Nasal Parainfluen 2 PCR Nasal Parainfluen 3 PCR Nasal Parainfluen 4 PCR Nasal RSV (PCR) Nasal Screen MRSA (PCR) (NEGATIVE) Nasal B.pertussis DNA PCR Nasal C.pneumoniae (PCR) Jaziel Human Metapneumo PCR Nasal M.pneumoniae (PCR) Nasal SARS-CoV-2 (PCR) 04/07/20 04/07/20 04/06/20 Range/Units 04:30 01:08 21:50 WBC 7.1 (4.8-10.8) x10^3/uL RBC 4.56 L (4.70-6.10) 10^6/uL Hgb 14.3 (14.0-18.0) g/dL Hct 42.0 (42.0-52.0) % MCV 92.1 (80.0-94.0) fL MCH 31.4 H (27.0-31.0) pg MCHC 34.0 (32.0-36.0) g/dL RDW 16.7 H (12.0-15.0) % Plt Count 105 L (130-450) 10^3/uL MPV 12.4 H (7.4-11.4) fL Neut # (Auto) Not Reportable (1.5-6.6) 10^3/uL Lymph # (Auto) Not Reportable (1.5-3.5) 10^3/uL [place] # (Auto) Not Reportable (0.0-1.0) 10^3/uL Eos # (Auto) Not Reportable (0.0-0.7) 10^3/uL Baso # (Auto) Not Reportable (0.0-0.1) 10^3/uL Absolute Nucleated RBC Not Reportable x10^3/uL Total Counted 100 Band Neuts % (Manual) 2 Abnorm Lymph % (Manual) 0 Nucleated RBC % Not Reportable /100WBC Neutrophils # (Manual) 5.7 Lymphocytes # (Manual) 0.5 L Monocytes # (Manual) 0.9 Eosinophils # (Manual) 0.0 Basophils # (Manual) 0.0 Differential Comment MANUAL DIFFERENTIAL Manual Slide Review WBC Morphology NORMAL APPEARANCE (NORMAL) Platelet Estimate DECREASED (<130,000) (NORMAL) Platelet Morphology NORMAL APPEARANCE (NORMAL) RBC Morph Micro Appear NORMAL APPEARANCE (NORMAL) Sodium (135-145) mmol/L Potassium (3.5-5.0) mmol/L Chloride (101-111) mmol/L Carbon Dioxide (21-32) mmol/L Anion Gap (6-13) BUN (6-20) mg/dL Creatinine (0.6-1.2) mg/dL Estimated GFR (MDRD) (>89) Glucose (70-100) mg/dL Lactic Acid 3.8 H* 3.8 H* (0.5-2.2) mmol/L Calcium (8.5-10.3) mg/dL Phosphorus (2.5-4.6) mg/dL Magnesium (1.7-2.8) mg/dL Total Bilirubin (0.2-1.0) mg/dL AST (10-42) IU/L ALT (10-60) IU/L Alkaline Phosphatase (42-121) IU/L Total Creatine Kinase (22-269) IU/L Troponin I High Sens (2.3-19.7) ng/L Total Protein (6.7-8.2) g/dL Albumin (3.2-5.5) g/dL Globulin (2.1-4.2) g/dL Albumin/Globulin Ratio (1.0-2.2) Lipase (22-51) U/L Urine Color Urine Clarity (CLEAR) Urine pH (5.0-7.5) PH Ur Specific [place] (1.002-1.030) Urine Protein (NEGATIVE) mg/dL Urine Glucose (UA) (NEGATIVE) mg/dL Urine Ketones (NEGATIVE) mg/dL Urine Occult Blood (NEGATIVE) Urine Nitrite (NEGATIVE) Urine Bilirubin (NEGATIVE) Urine Urobilinogen (NORMAL) E.U./dL Ur Leukocyte Esterase (NEGATIVE) Urine RBC (0-5) /HPF Urine WBC (0-3) /HPF Ur Squamous Epith Cells (<= Few) Urine Bacteria (None Seen) /HPF Urine Casts /LPF Ur Microscopic Review Urine Culture Comments Nasal Adenovirus (PCR) Nasal B. parapertussis DNA (PCR) Nasal Coronavir 229E PCR Nasal Coronavir HKU1 PCR Nasal Coronavir NL63 PCR Nasal Coronavir OC43 PCR Nasal Enterovir/Rhinovir PCR Nasal Influenza B PCR Nasal Influenza A PCR Nasal Parainfluen 1 PCR Nasal Parainfluen 2 PCR Nasal Parainfluen 3 PCR Nasal Parainfluen 4 PCR Nasal RSV (PCR) Nasal Screen MRSA (PCR) (NEGATIVE) Nasal B.pertussis DNA PCR Nasal C.pneumoniae (PCR) Jaziel Human Metapneumo PCR Nasal M.pneumoniae (PCR) Nasal SARS-CoV-2 (PCR) 04/06/20 04/06/20 04/06/20 Range/Units 19:35 18:34 18:00 WBC (4.8-10.8) x10^3/uL RBC (4.70-6.10) 10^6/uL Hgb (14.0-18.0) g/dL Hct (42.0-52.0) % MCV (80.0-94.0) fL MCH (27.0-31.0) pg MCHC (32.0-36.0) g/dL RDW (12.0-15.0) % Plt Count (130-450) 10^3/uL MPV (7.4-11.4) fL Neut # (Auto) (1.5-6.6) 10^3/uL Lymph # (Auto) (1.5-3.5) 10^3/uL [place] # (Auto) (0.0-1.0) 10^3/uL Eos # (Auto) (0.0-0.7) 10^3/uL Baso # (Auto) (0.0-0.1) 10^3/uL Absolute Nucleated RBC x10^3/uL Total Counted Band Neuts % (Manual) Abnorm Lymph % (Manual) Nucleated RBC % /100WBC Neutrophils # (Manual) Lymphocytes # (Manual) Monocytes # (Manual) Eosinophils # (Manual) Basophils # (Manual) Differential Comment Manual Slide Review WBC Morphology (NORMAL) Platelet Estimate (NORMAL) Platelet Morphology (NORMAL) RBC Morph Micro Appear (NORMAL) Sodium (135-145) mmol/L Potassium (3.5-5.0) mmol/L Chloride (101-111) mmol/L Carbon Dioxide (21-32) mmol/L Anion Gap (6-13) BUN (6-20) mg/dL Creatinine (0.6-1.2) mg/dL Estimated GFR (MDRD) (>89) Glucose (70-100) mg/dL Lactic Acid 2.7 H (0.5-2.2) mmol/L Calcium (8.5-10.3) mg/dL Phosphorus (2.5-4.6) mg/dL Magnesium (1.7-2.8) mg/dL Total Bilirubin (0.2-1.0) mg/dL AST (10-42) IU/L ALT (10-60) IU/L Alkaline Phosphatase (42-121) IU/L Total Creatine Kinase 205 (22-269) IU/L Troponin I High Sens (2.3-19.7) ng/L Total Protein (6.7-8.2) g/dL Albumin (3.2-5.5) g/dL Globulin (2.1-4.2) g/dL Albumin/Globulin Ratio (1.0-2.2) Lipase (22-51) U/L Urine Color Urine Clarity (CLEAR) Urine pH (5.0-7.5) PH Ur Specific [place] (1.002-1.030) Urine Protein (NEGATIVE) mg/dL Urine Glucose (UA) (NEGATIVE) mg/dL Urine Ketones (NEGATIVE) mg/dL Urine Occult Blood (NEGATIVE) Urine Nitrite (NEGATIVE) Urine Bilirubin (NEGATIVE) Urine Urobilinogen (NORMAL) E.U./dL Ur Leukocyte Esterase (NEGATIVE) Urine RBC (0-5) /HPF Urine WBC (0-3) /HPF Ur Squamous Epith Cells (<= Few) Urine Bacteria (None Seen) /HPF Urine Casts /LPF Ur Microscopic Review Urine Culture Comments Nasal Adenovirus (PCR) Nasal B. parapertussis DNA (PCR) Nasal Coronavir 229E PCR Nasal Coronavir HKU1 PCR Nasal Coronavir NL63 PCR Nasal Coronavir OC43 PCR Nasal Enterovir/Rhinovir PCR Nasal Influenza B PCR Nasal Influenza A PCR Nasal Parainfluen 1 PCR Nasal Parainfluen 2 PCR Nasal Parainfluen 3 PCR Nasal Parainfluen 4 PCR Nasal RSV (PCR) Nasal Screen MRSA (PCR) NEGATIVE (NEGATIVE) Nasal B.pertussis DNA PCR Nasal C.pneumoniae (PCR) Jaziel Human Metapneumo PCR Nasal M.pneumoniae (PCR) Nasal SARS-CoV-2 (PCR) 04/06/20 04/06/20 04/06/20 Range/Units 16:44 15:00 14:45 WBC (4.8-10.8) x10^3/uL RBC (4.70-6.10) 10^6/uL Hgb (14.0-18.0) g/dL Hct (42.0-52.0) % MCV (80.0-94.0) fL MCH (27.0-31.0) pg MCHC (32.0-36.0) g/dL RDW (12.0-15.0) % Plt Count (130-450) 10^3/uL MPV (7.4-11.4) fL Neut # (Auto) (1.5-6.6) 10^3/uL Lymph # (Auto) (1.5-3.5) 10^3/uL [place] # (Auto) (0.0-1.0) 10^3/uL Eos # (Auto) (0.0-0.7) 10^3/uL Baso # (Auto) (0.0-0.1) 10^3/uL Absolute Nucleated RBC x10^3/uL Total Counted Band Neuts % (Manual) Abnorm Lymph % (Manual) Nucleated RBC % /100WBC Neutrophils # (Manual) Lymphocytes # (Manual) Monocytes # (Manual) Eosinophils # (Manual) Basophils # (Manual) Differential Comment Manual Slide Review WBC Morphology (NORMAL) Platelet Estimate (NORMAL) Platelet Morphology (NORMAL) RBC Morph Micro Appear (NORMAL) Sodium (135-145) mmol/L Potassium (3.5-5.0) mmol/L Chloride (101-111) mmol/L Carbon Dioxide (21-32) mmol/L Anion Gap (6-13) BUN (6-20) mg/dL Creatinine (0.6-1.2) mg/dL Estimated GFR (MDRD) (>89) Glucose (70-100) mg/dL Lactic Acid 3.4 H* (0.5-2.2) mmol/L Calcium (8.5-10.3) mg/dL Phosphorus (2.5-4.6) mg/dL Magnesium (1.7-2.8) mg/dL Total Bilirubin (0.2-1.0) mg/dL AST (10-42) IU/L ALT (10-60) IU/L Alkaline Phosphatase (42-121) IU/L Total Creatine Kinase (22-269) IU/L Troponin I High Sens (2.3-19.7) ng/L Total Protein (6.7-8.2) g/dL Albumin (3.2-5.5) g/dL Globulin (2.1-4.2) g/dL Albumin/Globulin Ratio (1.0-2.2) Lipase (22-51) U/L Urine Color DARK YELLOW Urine Clarity CLEAR (CLEAR) Urine pH 5.0 (5.0-7.5) PH Ur Specific [place] 1.020 (1.002-1.030) Urine Protein TRACE (NEGATIVE) mg/dL Urine Glucose (UA) NEGATIVE (NEGATIVE) mg/dL Urine Ketones TRACE (NEGATIVE) mg/dL Urine Occult Blood NEGATIVE (NEGATIVE) Urine Nitrite NEGATIVE (NEGATIVE) Urine Bilirubin MODERATE H (NEGATIVE) Urine Urobilinogen 1 (NORMAL) (NORMAL) E.U./dL Ur Leukocyte Esterase TRACE H (NEGATIVE) Urine RBC None Seen (0-5) /HPF Urine WBC 0-3 (0-3) /HPF Ur Squamous Epith Cells NONE SEEN (<= Few) Urine Bacteria None Seen (None Seen) /HPF Urine Casts 26-50 Hyaline Casts /LPF Ur Microscopic Review INDICATED Urine Culture Comments INDICATED Nasal Adenovirus (PCR) NOT DETECTED Nasal B. parapertussis DNA (PCR) NOT DETECTED Nasal Coronavir 229E PCR NOT DETECTED Nasal Coronavir HKU1 PCR NOT DETECTED Nasal Coronavir NL63 PCR NOT DETECTED Nasal Coronavir OC43 PCR NOT DETECTED Nasal Enterovir/Rhinovir PCR NOT DETECTED Nasal Influenza B PCR NOT DETECTED Nasal Influenza A PCR NOT DETECTED Nasal Parainfluen 1 PCR NOT DETECTED Nasal Parainfluen 2 PCR NOT DETECTED Nasal Parainfluen 3 PCR NOT DETECTED Nasal Parainfluen 4 PCR NOT DETECTED Nasal RSV (PCR) NOT DETECTED Nasal Screen MRSA (PCR) (NEGATIVE) Nasal B.pertussis DNA PCR NOT DETECTED Nasal C.pneumoniae (PCR) NOT DETECTED Jaziel Human Metapneumo PCR NOT DETECTED Nasal M.pneumoniae (PCR) NOT DETECTED Nasal SARS-CoV-2 (PCR) NOT DETECTED 04/06/20 04/06/20 04/06/20 Range/Units 13:33 13:33 13:33 WBC (4.8-10.8) x10^3/uL RBC (4.70-6.10) 10^6/uL Hgb (14.0-18.0) g/dL Hct (42.0-52.0) % MCV (80.0-94.0) fL MCH (27.0-31.0) pg MCHC (32.0-36.0) g/dL RDW (12.0-15.0) % Plt Count (130-450) 10^3/uL MPV (7.4-11.4) fL Neut # (Auto) (1.5-6.6) 10^3/uL Lymph # (Auto) (1.5-3.5) 10^3/uL [place] # (Auto) (0.0-1.0) 10^3/uL Eos # (Auto) (0.0-0.7) 10^3/uL Baso # (Auto) (0.0-0.1) 10^3/uL Absolute Nucleated RBC x10^3/uL Total Counted Band Neuts % (Manual) Abnorm Lymph % (Manual) Nucleated RBC % /100WBC Neutrophils # (Manual) Lymphocytes # (Manual) Monocytes # (Manual) Eosinophils # (Manual) Basophils # (Manual) Differential Comment Manual Slide Review WBC Morphology (NORMAL) Platelet Estimate (NORMAL) Platelet Morphology (NORMAL) RBC Morph Micro Appear (NORMAL) Sodium 134 L (135-145) mmol/L Potassium 4.6 (3.5-5.0) mmol/L Chloride 95 L (101-111) mmol/L Carbon Dioxide 26 (21-32) mmol/L Anion Gap 13.0 (6-13) BUN 32 H (6-20) mg/dL Creatinine 1.0 (0.6-1.2) mg/dL Estimated GFR (MDRD) 74 L (>89) Glucose 144 H (70-100) mg/dL Lactic Acid 3.5 H* (0.5-2.2) mmol/L Calcium 8.7 (8.5-10.3) mg/dL Phosphorus (2.5-4.6) mg/dL Magnesium (1.7-2.8) mg/dL Total Bilirubin 3.5 H (0.2-1.0) mg/dL AST 483 H (10-42) IU/L ALT 168 H (10-60) IU/L Alkaline Phosphatase 569 H (42-121) IU/L Total Creatine Kinase (22-269) IU/L Troponin I High Sens 9.9 (2.3-19.7) ng/L Total Protein 5.7 L (6.7-8.2) g/dL Albumin 2.7 L (3.2-5.5) g/dL Globulin 3.0 (2.1-4.2) g/dL Albumin/Globulin Ratio 0.9 L (1.0-2.2) Lipase 13 L (22-51) U/L Urine Color Urine Clarity (CLEAR) Urine pH (5.0-7.5) PH Ur Specific [place] (1.002-1.030) Urine Protein (NEGATIVE) mg/dL Urine Glucose (UA) (NEGATIVE) mg/dL Urine Ketones (NEGATIVE) mg/dL Urine Occult Blood (NEGATIVE) Urine Nitrite (NEGATIVE) Urine Bilirubin (NEGATIVE) Urine Urobilinogen (NORMAL) E.U./dL Ur Leukocyte Esterase (NEGATIVE) Urine RBC (0-5) /HPF Urine WBC (0-3) /HPF Ur Squamous Epith Cells (<= Few) Urine Bacteria (None Seen) /HPF Urine Casts /LPF Ur Microscopic Review Urine Culture Comments Nasal Adenovirus (PCR) Nasal B. parapertussis DNA (PCR) Nasal Coronavir 229E PCR Nasal Coronavir HKU1 PCR Nasal Coronavir NL63 PCR Nasal Coronavir OC43 PCR Nasal Enterovir/Rhinovir PCR Nasal Influenza B PCR Nasal Influenza A PCR Nasal Parainfluen 1 PCR Nasal Parainfluen 2 PCR Nasal Parainfluen 3 PCR Nasal Parainfluen 4 PCR Nasal RSV (PCR) Nasal Screen MRSA (PCR) (NEGATIVE) Nasal B.pertussis DNA PCR Nasal C.pneumoniae (PCR) Jaziel Human Metapneumo PCR Nasal M.pneumoniae (PCR) Nasal SARS-CoV-2 (PCR) 04/06/20 Range/Units 13:33 WBC 10.6 (4.8-10.8) x10^3/uL RBC 5.15 (4.70-6.10) 10^6/uL Hgb 15.9 (14.0-18.0) g/dL Hct 47.1 (42.0-52.0) % MCV 91.5 (80.0-94.0) fL MCH 30.9 (27.0-31.0) pg MCHC 33.8 (32.0-36.0) g/dL RDW 16.6 H (12.0-15.0) % Plt Count 146 (130-450) 10^3/uL MPV 12.3 H (7.4-11.4) fL Neut # (Auto) 8.4 H (1.5-6.6) 10^3/uL Lymph # (Auto) 0.5 L (1.5-3.5) 10^3/uL [place] # (Auto) 1.7 H (0.0-1.0) 10^3/uL Eos # (Auto) 0.0 (0.0-0.7) 10^3/uL Baso # (Auto) 0.0 (0.0-0.1) 10^3/uL Absolute Nucleated RBC 0.00 x10^3/uL Total Counted Band Neuts % (Manual) Not Reportable Abnorm Lymph % (Manual) Not Reportable Nucleated RBC % 0.0 /100WBC Neutrophils # (Manual) Not Reportable Lymphocytes # (Manual) Not Reportable Monocytes # (Manual) Not Reportable Eosinophils # (Manual) Not Reportable Basophils # (Manual) Not Reportable Differential Comment MANUAL=AUTO DIFF Manual Slide Review Indicated WBC Morphology NORMAL APPEARANCE (NORMAL) Platelet Estimate NORMAL (130-450,000) (NORMAL) Platelet Morphology NORMAL APPEARANCE (NORMAL) RBC Morph Micro Appear 1+ [place] (NORMAL) Sodium (135-145) mmol/L Potassium (3.5-5.0) mmol/L Chloride (101-111) mmol/L Carbon Dioxide (21-32) mmol/L Anion Gap (6-13) BUN (6-20) mg/dL Creatinine (0.6-1.2) mg/dL Estimated GFR (MDRD) (>89) Glucose (70-100) mg/dL Lactic Acid (0.5-2.2) mmol/L Calcium (8.5-10.3) mg/dL Phosphorus (2.5-4.6) mg/dL Magnesium (1.7-2.8) mg/dL Total Bilirubin (0.2-1.0) mg/dL AST (10-42) IU/L ALT (10-60) IU/L Alkaline Phosphatase (42-121) IU/L Total Creatine Kinase (22-269) IU/L Troponin I High Sens (2.3-19.7) ng/L Total Protein (6.7-8.2) g/dL Albumin (3.2-5.5) g/dL Globulin (2.1-4.2) g/dL Albumin/Globulin Ratio (1.0-2.2) Lipase (22-51) U/L Urine Color Urine Clarity (CLEAR) Urine pH (5.0-7.5) PH Ur Specific [place] (1.002-1.030) Urine Protein (NEGATIVE) mg/dL Urine Glucose (UA) (NEGATIVE) mg/dL Urine Ketones (NEGATIVE) mg/dL Urine Occult Blood (NEGATIVE) Urine Nitrite (NEGATIVE) Urine Bilirubin (NEGATIVE) Urine Urobilinogen (NORMAL) E.U./dL Ur Leukocyte Esterase (NEGATIVE) Urine RBC (0-5) /HPF Urine WBC (0-3) /HPF Ur Squamous Epith Cells (<= Few) Urine Bacteria (None Seen) /HPF Urine Casts /LPF Ur Microscopic Review Urine Culture Comments Nasal Adenovirus (PCR) Nasal B. parapertussis DNA (PCR) Nasal Coronavir 229E PCR Nasal Coronavir HKU1 PCR Nasal Coronavir NL63 PCR Nasal Coronavir OC43 PCR Nasal Enterovir/Rhinovir PCR Nasal Influenza B PCR Nasal Influenza A PCR Nasal Parainfluen 1 PCR Nasal Parainfluen 2 PCR Nasal Parainfluen 3 PCR Nasal Parainfluen 4 PCR Nasal RSV (PCR) Nasal Screen MRSA (PCR) (NEGATIVE) Nasal B.pertussis DNA PCR Nasal C.pneumoniae (PCR) Jaziel Human Metapneumo PCR Nasal M.pneumoniae (PCR) Nasal SARS-CoV-2 (PCR) - Diagnostic Imaging Diagnostic Imaging Results: positive: Final report reviewed ABX Reporting Has patient been on IV antibiotics over the past 48 hours?: Yes Sepsis Event Note (H) - Evaluation Current Stage of Sepsis: Ruled out Possible source of Sepsis: positive: Pulmonary Assessment/Plan - Problem List (1) 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 Post-embolization syndrome is common and may be expected. He is afebrile, vital signs are normal. Lactate is still elevated. Will continue to give him maintenance fluid. Goal is to encourage PO fluid intake. Patient will remain in observations until he is well hydrated and when his lactate comes down. Qualifiers: Encounter type: initial encounter Qualified Code(s): T81.718A - Complication of other artery following a procedure, not elsewhere classified, initial encounter (2) Hypotension Impression: This is most likely secondary to dehydration. He received 1L LR in the emergency room yesterday and is still receiving LR IV maintenance fluid. He is now normotensive. Will continue to monitor his blood pressure today. Qualifiers: Hypotension type: unspecified hypotension type Qualified Code(s): I95.9 - Hypotension, unspecified (3) Lactic acidosis Impression: His lactate remains elevated but not uptrending. This is likely secondary to necrotic tumor tissue from post liver embolization. Will redraw a lactate later today and continue maintenance IVF. (4) Abnormal abdominal CT scan Impression: abdominal/pelvis CT from yesterday showed hepatomegaly and extensive metastases compared to previous study. There is also a large amount of ascites fluid seen along with possible necrotic tissue from recent embolization. Bilateral pleural effusions with bibasilar ateletasis and subcentimeter nodules seen in the right middle and lower lobes, which is concerning for pulmonary metastases per radiology. Plan: Will try to get records from /[facility] and see if they have a recent chest CT. <Nidia Valdivia - Last Filed: 04/08/20 10:20> Subjective - Subjective Subjective: Attestation that the patient was seen and examined under separate encounter. Symptoms, review of systems, exam and assessment and plan reviewed. Case was discussed with DNP student Martha Soler and with patient. Documentation is appropriate and correct. No changes. Patient has some cognitive deficit due to illness. Will most likely need to speak to to update her on case. Objective - Vital Signs/Intake & Output Vital Signs: Vital Signs x48h Temp Pulse Resp BP Pulse Ox 04/08/20 08:29 36.5 C 71 16 111/70 94 Intake & Output: Intake & Output 04/05/20 04/06/20 04/07/20 04/08/20 23:59 23:59 23:59 23:59 Intake Total 2150 5204 1974.000 Output Total 375 490 Balance 1775 4714 1974.000 - Lab Results Fish Bones: 04/08/20 05:20 04/08/20 05:20 Other Labs: Lab Results x24hrs 04/08/20 04/08/20 04/08/20 Range/Units 08:53 05:20 05:20 WBC (4.8-10.8) x10^3/uL RBC (4.70-6.10) 10^6/uL Hgb (14.0-18.0) g/dL Hct (42.0-52.0) % MCV (80.0-94.0) fL MCH (27.0-31.0) pg MCHC (32.0-36.0) g/dL RDW (12.0-15.0) % Plt Count (130-450) 10^3/uL MPV (7.4-11.4) fL Neut # (Auto) (1.5-6.6) 10^3/uL Lymph # (Auto) (1.5-3.5) 10^3/uL [place] # (Auto) (0.0-1.0) 10^3/uL Eos # (Auto) (0.0-0.7) 10^3/uL Baso # (Auto) (0.0-0.1) 10^3/uL Absolute Nucleated RBC x10^3/uL Nucleated RBC % /100WBC Sodium 134 L (135-145) mmol/L Potassium 4.1 (3.5-5.0) mmol/L Chloride 99 L (101-111) mmol/L Carbon Dioxide 25 (21-32) mmol/L Anion Gap 10.0 (6-13) BUN 28 H (6-20) mg/dL Creatinine 0.6 (0.6-1.2) mg/dL Estimated GFR (MDRD) 133 (>89) Glucose 245 H (70-100) mg/dL Lactic Acid 2.8 H (0.5-2.2) mmol/L Calcium 8.3 L (8.5-10.3) mg/dL Phosphorus 2.1 L (2.5-4.6) mg/dL Magnesium 2.1 (1.7-2.8) mg/dL Total Bilirubin 3.4 H (0.2-1.0) mg/dL AST 178 H (10-42) IU/L ALT 97 H (10-60) IU/L Alkaline Phosphatase 418 H (42-121) IU/L Total Protein 5.0 L (6.7-8.2) g/dL Albumin 2.2 L (3.2-5.5) g/dL Globulin 2.8 (2.1-4.2) g/dL Albumin/Globulin Ratio 0.8 L (1.0-2.2) 04/08/20 Range/Units 05:20 WBC 6.9 (4.8-10.8) x10^3/uL RBC 4.81 (4.70-6.10) 10^6/uL Hgb 14.9 (14.0-18.0) g/dL Hct 43.2 (42.0-52.0) % MCV 89.8 (80.0-94.0) fL MCH 31.0 (27.0-31.0) pg MCHC 34.5 (32.0-36.0) g/dL RDW 16.6 H (12.0-15.0) % Plt Count 108 L (130-450) 10^3/uL MPV 12.3 H (7.4-11.4) fL Neut # (Auto) 5.1 (1.5-6.6) 10^3/uL Lymph # (Auto) 0.5 L (1.5-3.5) 10^3/uL [place] # (Auto) 1.2 H (0.0-1.0) 10^3/uL Eos # (Auto) 0.0 (0.0-0.7) 10^3/uL Baso # (Auto) 0.0 (0.0-0.1) 10^3/uL Absolute Nucleated RBC 0.00 x10^3/uL Nucleated RBC % 0.0 /100WBC Sodium (135-145) mmol/L Potassium (3.5-5.0) mmol/L Chloride (101-111) mmol/L Carbon Dioxide (21-32) mmol/L Anion Gap (6-13) BUN (6-20) mg/dL Creatinine (0.6-1.2) mg/dL Estimated GFR (MDRD) (>89) Glucose (70-100) mg/dL Lactic Acid (0.5-2.2) mmol/L Calcium (8.5-10.3) mg/dL Phosphorus (2.5-4.6) mg/dL Magnesium (1.7-2.8) mg/dL Total Bilirubin (0.2-1.0) mg/dL AST (10-42) IU/L ALT (10-60) IU/L Alkaline Phosphatase (42-121) IU/L Total Protein (6.7-8.2) g/dL Albumin (3.2-5.5) g/dL Globulin (2.1-4.2) g/dL Albumin/Globulin Ratio (1.0-2.2) Assessment/Plan - Problem List (1) 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
--- NOTE | 2020-04-07 12:56 | PHARMACY PROGRESS NOTE ---
- Best Possible Medication History Admit Date and Time: 04/06/20 1629 Processed by: Pharmacy Medication History completed: Yes Patient Interview: Completed Secondary Source(s): Pharmacy records, Insurance records As the person ultimately responsible for medication therapy, providers are able to order a medication from an existing home medication list in [facility] via the "Reconcile Routine" prior to Confirmation of that medication by director sales support. Such practice is discouraged except when the physician, in their clinical judgment, deems that a medical need exists for a medication without regard to previous use.
[2020-04-08] MEDS: LACTATED RINGERS 1,000 ML IV SCH ×2 (00:42→08:35)
[2020-04-08 05:31] LABS: BASOPHILS % (AUTO) 0.1 %; HGB - HEMOGLOBIN 14.9 g/dL (14.0-18.0); LYMPHOCYTES # (AUTO) 0.5 10^3/uL (1.5-3.5); LYMPHOCYTES % (AUTO) 7.4 %; MEAN CORPUSCULAR HGB CONC 34.5 g/dL (32.0-36.0); MEAN CORPUSCULAR VOLUME 89.8 fL (80.0-94.0); MEAN PLATELET VOLUME 12.3 fL (7.4-11.4); MONOCYTES # (AUTO) 1.2 10^3/uL (0.0-1.0); MONOCYTES % (AUTO) 17.1 %; NEUTROPHILS # (AUTO) 5.1 10^3/uL (1.5-6.6); NEUTROPHILS % (AUTO) 74.5 %; PLT - PLATELET COUNT 108 10^3/uL (130-450); RED BLOOD COUNT 4.81 10^6/uL (4.70-6.10); RED CELL DISTRIBUTION WIDTH 16.6 % (12.0-15.0); WHITE BLOOD COUNT 6.9 x10^3/uL (4.8-10.8)
[2020-04-08 05:44] LABS: ALBUMIN 2.2 g/dL (3.2-5.5); ALBUMIN/GLOBULIN RATIO 0.8 (1.0-2.2); BILIRUBIN,TOTAL 3.4 mg/dL (0.2-1.0); CALCIUM 8.3 mg/dL (8.5-10.3); CREATININE 0.6 mg/dL (0.6-1.2)
[2020-04-08 05:46] LABS: MAGNESIUM 2.1 mg/dL (1.7-2.8); PHOSPHORUS 2.1 mg/dL (2.5-4.6)
[2020-04-08] MEDS ORDERED: INSULIN ASPART 300 UNIT/3 ML PEN SUBQ ONE (07:36)
[2020-04-08] MEDS ORDERED: POTASSIUM PHOSPHATE 15 MMOL in SODIUM CHLORIDE 0.9% 250 ML IV ONE (08:00)
[2020-04-08] MEDS: levETIRAcetam 500 MG/5 ML UDC PO SCH (08:14)
[2020-04-08] MEDS: ENOXAPARIN 40 MG/0.4 ML SYRINGE SUBQ SCH (08:14)
[2020-04-08] MEDS: SODIUM CHLORIDE FLUSH 0.9% 10 ML SYRINGE IVP SCH (08:16)
[2020-04-08 08:30] VITALS: BP 111/70
[2020-04-08] MEDS ORDERED: TAMSULOSIN 0.4 MG CAPSULE PO SCH (09:00)
[2020-04-08] MEDS ORDERED: carvediloL 3.125 MG TABLET PO SCH (09:00)
[2020-04-08] MEDS ORDERED: INSULIN GLARGINE 300 UNIT/3 ML PEN SUBQ SCH (09:00)
[2020-04-08] MEDS ORDERED: LACOSAMIDE 200 MG PO SCH (09:00)
--- NOTE | 2020-04-08 11:26 | Discharge Plan ---
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 You have been undergoing treatment for quite some time. Your most recent treatment was focused on the metastatic disease to the liver and you underwent embolization of the tumor a pproximately April 04. You were discharged to home but unfortunately developed severe weakness and fatigue and came to our emergency room. The emergency room doctor initially thought that you had sepsis with pneumonia. After a thorough evaluation we think that you do not have pneumonia, you do not have sepsis, but have lactic acidosis as a side effect of not eating much/Metformin/the tumor being killed in your liver. Overall the syndrome is called post embolization syndrome. All we did was give you IV fluids to hydrate you, stop your Metformin, feed you and you have improved. Your vital signs, oxygen levels, and ability to walk are now almost normal. You still have a poor appetite.You need a walker to get around slowly. Plan of Treatment: 1. You will slowly get better from post embolization syndrome. Eventually your liver enzymes should get back to normal. And you should have no more pain. 2. Eat as much food as you can tolerate. We know you have an a poor appetite. Try not to drink more than 1500 cc of liquid a day. This should hydrate you but not over hydrate you. 3. We have asked that our palliative care consultative service see you in follow-up. Your is the person that takes care of you the most. There are sometimes logistical things that make it hard for her to make decisions about how to take care of you. Palliative care will help her and you get through this difficult time. They will also focus on what makes you more comfortable with regards to pain medicine, nausea medicine, emotional needs, etc. They should be calling your house to make an appointment. 4. You are only supposed to be on your seizure medicines for 6 months. This month is about the time that you would go off of them. However I am still con cerned that you may have some follow-up inflammation in your brain. I would recommend that you decrease your Keppra from 1500 mg a day to 1000 mg a day. See how you do for a couple of months if not 3 months. Then decrease it to 750 mg a day. You do not have a neurologist. You are relying on your cancer doctors to help you but so far no one has made any changes in your medicines. Make sure you let them know that I have done this. 5. Stop Metformin. Metformin is a wonderful diabetic pill. However it can cause severe lactic acidosis in a patient who is not feeling well. Lactic acidosis was one of the problems you came in with. Do not take metformin anymore and only control your diabetes with Lantus and short acting insulin. Care Goals: To try and achieve cancer remission. To control the tumor to give you a longer life. Assessment: Patient has cognitive deficits and mild metabolic encephalopathy. He understands care goals and will try to follow through to the best of his understanding. is taking care of all logistics, has understood care plan, and is grateful that we will be referring for palliative care. She is finding her self overwhelmed at times. No Smoking: If you smoke, Please STOP! Call for help. Follow-up with: Sushant Guadalupe MD [Primary Care Provider] -
--- NOTE | 2020-04-08 13:05 | DISCHARGE SUMMARY ---
Discharge Summary Admit Date: 04/06/20 Discharge Date: 04/08/20 Discharging Provider: Nidia Valdivia MD Primary Care Provider: Sushant Guadalupe MD Code Status: Attempt Resuscitation Condition at Discharge: Stable - DIAGNOSES Discharge Diagnoses with Status of Each Condition: 1. Postembolization syndrome following embolization of liver 2. Colon cancer with metastatic disease to liver, lung, peritoneum 3. Hypotension 4. Lactic acidosis 5. Abnormal abdominal/CT 6. Adult failure to thrive - HPI History of Present Illness: Patient is a pleasant 69-year-old male with a history of diabetes, neuroendocrine cancer with metastases to the peritoneum, brain, and liver who is s/p craniotomy in 10/15 and recently had liver embolization on 04/03/20 who presents to the emergency room for generalized weakness. Patient was discharged from the [facility] on 04/04/20 post-embolization. He reports feeling weak and unwell since his discharge. He was able to walk around his home with his cane yesterday, however, he became progressively weak today and was unable to walk. Patient also reports not having an appetite after his embolization. His became concern that he is not feeling well and called EMS to take him to the hospital. He denies fever, chills, weight changes, but reports fatigue for the past two weeks. No headache, dyspnea, cough, or chest pain. He has chronic bilateral pedal edema and ascites. He endorses mild abdomi nal pain that is improving, no nausea/vomiting, melena or hematochezia. He admits to having constipation since his embolization. No dysuria, urgency or frequency. Generalized weakness that has worsened since he was discharged from the hospital. No neuro deficits. The patient is afebrile, normal sinus rhythm with soft blood pressure 90s/60s. His oxygen saturations were initially in the 90s on room air but is now 94-95%. His lab is notable for an elevated lactate of 3.5 and LFTs. No leukocytosis. Blood cultures are sent and is pending. Chest x-ray shows possible interstitial infiltrates, thus, he was started on IV levofloxacin and cefepime per sepsis protocol and was also given a liter of LR. Patient is being admitted to the ICU for hypotension, lactic acidosis, and possible pneumonia. (Martha Soler) - Past Medical History Cardiovascular: reports: Hypertension Respiratory: reports: None Neuro: reports: Other (status epilepticus noted in 09/2019 secondary to intracranial bleed post craniotomy.) Endocrine/Autoimmune: reports: Type 2 diabetes GI: reports: Other (occasional constipation) : reports: Benign prostate hypertrophy HEENT: reports: None Musculoskeletal: reports: None Derm: reports: None MRSA Hx?: No - Past Surgical History General: reports: Liver surgery (liver embolization ) Neuro: reports: Craniotomy - CONSULTS | PROCEDURES Procedures: 1. Urine culture without growth 2. Blood cultures without growth 3. Head CT with postsurgical changes of the left occipital craniotomy with resolution of the previously seen adjacent hematoma from October 24, 2019 4. Chest x-ray increased interstitial prominence in bilateral lung yepez representing pneumonitis versus interstitial infiltrates. No pleural effusion or pneumothorax 5. Abdomen 4/pelvis CT. Small to moderate left pleural effusion and small right pleural effusion with segmental atelectasis of adjacent bilateral lower lobes. A 4 mm nodule is seen in the posterior medial aspect of the right lower lobe and right middle lobe medial right lung base. Liver is enlarged. Moderate to large amount of ascites. Extensive hypodensities throughout the right hepatic lobe with additional oval hypodensities scattered in the right and left hepatic lobes significantly increased in size and number compared to the 2018 study and consistent with extensive liver mets. Peripherally enhancing area of hypodensity in the posterior segment of the right hepatic lobe that is 14 x 7 x 11 0.8 x 11.3 cm. Tumor necrosis in the right hepatic lobe is likely present. Gallbladder without gross abnormalities. Biliary system nondilated. Spleen enlarged with heterogeneous contrast-enhancement. Infiltrative mass involving pancreatic tail/Bennick hilum grossly unchanged in size and appearance. Soft tissue mass in the lesser sac abutting the greater curvature of the stomach is less well-defined on the current study and is slightly smaller than previous study. Kidneys are normal. No hydronephrosis. No stones. Bowel and bowel gas appear normal. No retroperitoneal or mesenteric adenopathy. - HOSPITAL COURSE Hospital Course: Because of his lactic acidosis, lethargy, and changes of "pneumonia" seen on the lower slices of the lungs from the CT of the abdomen, the admitting RODBUSTER in the emergency room initially felt that this patient has sepsis. As such he was started on antibiotics but sepsis protocol not instituted. When we evaluated him upon admission to our service, we felt that the patient had post embolization syndrome due to his recent chemo embolectomy. The lactic acidosis was due to the tumor in the liver, dehydration, tumor necrosis, and the fact that he is on Metformin. We did not continue antibiotics. With hydration, nutrition, and control of his glucose with Lantus and sliding scale, the patient's hypotension and weakness improved. He is still weak enough that he needs a walker in his room. Very slow to be able to transfer from a laying, to sitting, to standing position. Needs a standby assist. He and his both note that at 88.8 kg,He has lost a substantial amount of weight. In March 2013 this gentleman was 111 kg. By March 2018 he was 100.8 kg. February 2000 1994.6 kg. September 19990.7 kg. And with this admission 88.8 kg. The was in tears. We did an advance care planning conversation. And I have made a referral to palliative care and have already spoken to Cheri Price about this patient. At discharge I have instructed her to stop his metformin. Do not give that to him anymore. To just control his glucose with the Lantus and short acting insulin. She is very concerned that he is still on Keppra 1500 mg twice a day. After leaving [facility] for the craniotomy and seizures from September 2019 the discharge instructions were for him to be off Keppra in 6 months. Is now been 6 months and no one is answering her question about what to do with the Keppra. 1 oncologist stated that does not his specialty. That she will have to take her to a neurologist. Another oncologist at [facility] had that it would be possible to stop the Keppra but was vague about wh en to do it or how to do it. She is looking for guidance about what to do. She is also very concerned because he is also tremendous amount of weight. He is to be over 100 kg and now weighs 88 kg. I have reduced his Keppra to 1000 mg twice a day. Please speak to either Dr. Guadalupe or oncology about reducing it further to 750 mg twice a day. While it would be the best of all possible orals for him to see neurology, the logistics is daunting. Making a referral to neurology at this point in time would result in a 3 to 4-month waiting time to get in to see 1. Essentially our treatment consisted of aggressive IV hydration. Stopping his Metformin. Controlling his sugars. And he was eating 50 to 75% of his meals at discharge. At discharge his temperature was 36.5, heart rate 71, blood pressure 111/70. Respirations 16. And he is 93% resting room air. We walked him down the end of the hallway and back to his bed and he was still 93 to 94% on room air. He is very tired. Slow walking and needs a walker. No JVD. Both lung bases are dull and diminished breath sounds. No tachypnea or use of accessory muscles. The abdomen is distended with ascites and he has a fluid wave. He has slight scrotal edema. Legs have bilateral dependent edema and the right anterior perales appears to have a resolving bruise. But there are no open lesions, no decubiti. While he is alert and oriented, there is definite cognitive slowing. Speech is slow. Thought process is slow. He found it very difficult to be able to access his 's phone number on his cell phone and could not quite figure out how to press the numbers. He basically was able to remember his code. Handed me the phone and I was able to find his 's phone number. Greater than 30 minutes was spent coordinating discharge. I am having him see his primary care provider in follow-up as well has [facility] appointment is to be kept for next week.I am hoping that a palliative care consultation can be done in the next week. They may be able to coordinate some of the thought process between [facility] and the patient's care locally. Nutrition needs to be maximized if he is to continue with his therapy. His endurance also needs to be improved. Stopping or tapering off his Keppra needs to be done. Is it time to transition him to the idea that therapy may not be appropriate? Is it time to transition him to DO NOT RESUSCITATE status? - ALLERGIES Allergies/Adverse Reactions: Allergies Allergy/AdvReac Type Severity Reaction Status Date / Time phenytoin Allergy Unknown Verified 04/06/20 13:19 - MEDICATIONS Home Medications: Ambulatory Orders Medication Instructions Recorded Confirmed Aspirin Chewable [St Nael 81 mg PO DAILY 03/31/13 04/07/20 Aspirin] Tamsulosin [Flomax] 0.4 mg PO BID 04/14/18 04/07/20 Insulin Glargine [Lantus Solostar] 6 unit SUBQ DAILY 07/24/18 04/07/20 carvediloL [Carvedilol] 3.125 mg PO BID 06/30/19 04/07/20 Lacosamide [Vimpat] 200 mg PO BID 03/29/20 04/07/20 Omeprazole Magnesium 20 mg PO DAILY 03/29/20 04/07/20 Torsemide 20 mg PO DAILY 03/29/20 04/07/20 Simvastatin [Zocor] 40 mg PO QPM 04/07/20 04/07/20 levETIRAcetam [Keppra] 1,000 mg PO BID #240 tablet 04/08/20 oxyCODONE [Roxicodone] 5 mg PO Q4HR PRN tablet 04/08/20 - LABS Result Diagrams: 04/08/20 05:20 04/08/20 05:20 - SEPSIS Current Stage of Sepsis: Ruled out Possible source of Sepsis: Pulmonary
--- NOTE | 2020-04-08 13:24 | ADVANCE CARE PLANNING NOTE ---
Advance Care Planning - Planning Encounter Date: 04/08/20 Time: 11:00 Parties in Attendance: Patient's , patient, Dr. Valdivia via a phone call because of Covid restriciton Decisional Capacity of the Patient: Intact and he is oriented but has cognitive delay due to craniotomy. He is slow to move, slow to be able to process/think with low, hoarse, slow voice response - Diagnosis for Encounter (1) Post-embolization syndrome following chemoembolization of liver Qualifiers: Encounter type: sequela Qualified Code(s): T81.718S - Complication of other artery following a procedure, not elsewhere classified, sequela - Encounter Subjective/Patient's Story: She and he described him is a very active vibrant individual. Very healthy, and always outside doing things. She describes him as a very "mellow casper". Hates to upset people and always wants to go with the flow. That is put her in the position of having to be "the bad casper" and negotiating his care with the healthcare system. He developed ITP approximately 2010. He was followed regularly. In one of the work-up he was found to have a liver mass or multiple masses. This was in 2018. By March 2018 the diagnosis was neuroendocrine tumor metastatic from the pancreas with mets to the peritoneum and liver. His care has been through the [facility] after he transferred his care to them from [facility] oncology. describes a cognitive deficit ever since the craniotomy after the bleed. He is getting weaker, and more depe ndent on her for activities of daily living. He has been a fiercely independent gentleman and it has been devastating him to lose his independence. She is in tears when she describes that she is starting to feel more and more overwhelmed. They did have home health for short time after his craniotomy but she was disgusted with the attitude of the nurses that came by. They really were not much help and at times were causing a reduction in morale for him. She did want to complain to the home health director of patient care but her is so conflict avoidant that he asked her to not contact them. The logistics of getting him to [facility] are starting to get problematic because he is getting weaker. The doctors there are very good at treating the cancer and they know what the goals are and what they need to do. However the logistics of making all that happen feels like it is an increasing onus of responsiblity on them without options for help. She is relying on her neighbors across the street sometimes but hates to call them. Their daughter lives in [place] near [place] in [facility]. He is not eating very much and has lost a tremendous amount of weight. Objective/Medical Story: He was followed on a regular basis by oncology with Dr. Tee Nam. He then switched oncologist to Dr. Rosangela Moss. And as part of her follow-up she did an ultrasound of the liver and spleen. The ultrasound showed abnormal liver lesions concerning for mets. A CT of the chest, abdomen, pelvis was done and he had multiple hepatic disease in both lobes. A mass in the tail of the pancreas which is felt to be the primary. An CT-guided biopsy of the liver was done. The initial thought was that it was good to have pancreatic adeno CA. The March 2018 pathology showed metastatic neuroendocrine tumor. CT confirmed not only liver mets but peritoneal carcinomatosis. He was then transferred to [facility].He had metastatic disease to the brain and underwent a craniotomy October 22, 2019. On the day of discharge, in the car ride on the way home, he became increasingly somnolent and unresponsive. By the time he got home he was unresponsive with a gaze deviation to the right and his head turned to the right. EMS was called and he was brought here. In our evaluation he did not have a seizure but was described as having status epilepticus. He was transferred back to [facility] because CT appeared to have acute hemorrhage. He is continued with [facility].He recently underwent a chemoembolization 2 days prior to this admission. He has severe anorexia, poor p.o. intake, generalized abdominal discomfort, and by the time they got him home, out of the car, he was so weak he could not almost walk. The weakness is continued and that is why he came to the emergency room. In our emergency room he appears to have sepsis at first. But on further evaluation has post embolization syndrome. He also has severe lactic acidosis is a combination of Metformin, tumor necrosis, liver disease. His hypotension has improved. But he walks very slowly once he gets out of bed. That takes a standby assist to make sure he gets up safely. Gait is slow, shuffling, and he relies heavily to have his weight supported by a walker. His voice is low and hoarse and slow to respond in spontaneous conversation. He has diminished breath sounds at the bases. His abdomen has generalized ascites with a fluid wave. He has bilateral leg edema with the right anterior leg having a bruise. There is no open skin lesion. A couple of times he has tried to use his phone. While he can turn it on, he sometimes has difficulty accessing applications. For instance he wanted to call his and he struggled trying to figure out how to press the contact list, then get to his 's phone number. Goals of Care: 1. To try and get this cancer in remission or at least controlled to give him a longer life. 2. To remain at home as independent as possible. If he cannot be independent to have his take care of him 3. Full CODE STATUS. 4. To meet with any nutrition team members from [facility] to see if we can maximize his nutrition status And improve his physical endurance Plan: 1. I have taken the liberty of referring them to palliative care. I have already spoken to Cheri Price. 2. Follow-up with [facility] next week as already planned. She is already worried about the logistics of getting him there. 3. With the help of palliative care, start making a plan with how to get help to her, and possibly transition him to a DO NOT RESUSCITATE status. Code Status: Attempt Resuscitation Time spent on advance care plannin minutes
== END 2020-04-08 13:00 | disposition home or self-care (01) | DRG 299 ==
LOC: EDUNIT# → ED 13:11 → ICU 16:29 → ED 17:19 → MS2 04-07 16:19
PROVIDERS: ADMIT Specialist; ATTEND Specialist
DX: T81.718A Complication of other artery following a procedure, not elsewhere classified, initial encounter (principal); G93.41 Metabolic encephalopathy; E87.2 Acidosis; R53.1 Weakness; C7B.02 Secondary carcinoid tumors of liver; C7B.09 Secondary carcinoid tumors of other sites; C7B.8 Other secondary neuroendocrine tumors; R74.02 Elevation of levels of lactic acid dehydrogenase [LDH]; G40.801 Other epilepsy, not intractable, with status epilepticus; Y83.8 Other surgical procedures as the cause of abnormal reaction of the patient, or of later complication, without mention of misadventure at the time of the procedure; E86.0 Dehydration; R62.7 Adult failure to thrive; Z68.25 Body mass index [BMI] 25.0-25.9, adult; R91.8 Other nonspecific abnormal finding of lung field; T38.3X5A Adverse effect of insulin and oral hypoglycemic [antidiabetic] drugs, initial encounter; I95.9 Hypotension, unspecified; R18.8 Other ascites; N40.0 Benign prostatic hyperplasia without lower urinary tract symptoms; C7A.8 Other malignant neuroendocrine tumors; Z74.09 Other reduced mobility; E11.9 Type 2 diabetes mellitus without complications; I10 Essential (primary) hypertension; Z87.891 Personal history of nicotine dependence; Z79.82 Long term (current) use of aspirin; Z79.899 Other long term (current) drug therapy; R19.8 Other specified symptoms and signs involving the digestive system and abdomen
CPT/HCPCS: 36415; 70450; 71045; 74177; 80053; 81001; 82550; 83605; 83690; 83735; 84100; 84484; 85025; 87040; 87086; 87150; 87631; 93005; 99284; 99285; A9270; J1650; J1815; J7120; Q9967; 0202U; 81003